=== PATIENT | female | born 1940 | race African-American/Black ===

== ENCOUNTER 2018-08-05 14:56 | Inpatient (IN) | payer MEDICARE ==
--- NOTE | 2018-08-05 15:06 | ER Document Report ---
ED Medical Screen (RME) - General Chief Complaint: Slurred Speech Stated Complaint: WEAKNESS Time Seen by Provider: 08/05/18 15:04 Primary Care Provider: KEL ROSALES MD [Primary Care Provider] - Follow up as needed TRAVEL OUTSIDE OF THE [place] IN LAST 30 DAYS: No - HPI Notes: 08/05/18 15:06 Patient presented to the ED with sudden onset of slurred speech and left facial droop which started at 12 noon today. - Related Data Allergies/Adverse Reactions: ampicillin [Ampicillin] Allergy (Verified 07/25/12 12:07) RED BLOTCHES Penicillins Allergy (Verified 07/25/12 12:07) RED BLOTCHES Past Medical History - Past Medical History Cardiac Medical History: Reports: Hx Hypercholesterolemia, Hx Hypertension - medication Denies: Hx Heart Attack Pulmonary Medical History: Denies: Hx Asthma Neurological Medical History: Reports: Hx Cerebrovascular Accident. Denies: Hx Seizures Endocrine Medical History: Reports: Hx Diabetes Mellitus Type 2 GI Medical History: Denies: Hx Hepatitis, Hx Hiatal Hernia, Hx Ulcer Infectious Medical History: Denies: Hx Hepatitis Past Surgical History: Reports: Hx Bowel Surgery - gastric bypass, Hx Open Heart Surgery - CABG. Denies: Hx Mastectomy, Hx Pacemaker - Immunizations Hx Diphtheria, Pertussis, Tetanus Vaccination: No Doctor's Discharge - Discharge Referrals: KEL ROSALES MD [Primary Care Provider] - Follow up as needed
--- NOTE | 2018-08-05 15:21 | RADIOLOGY REPORT (SQ) ---
EXAM DESCRIPTION: CHEST SINGLE VIEW COMPLETED DATE/TIME: 08/05/2018 3:12 pm REASON FOR STUDY: slurred speech COMPARISON: 08/25/2009. EXAM PARAMETERS: NUMBER OF VIEWS: One view. TECHNIQUE: Single frontal radiographic view of the chest acquired. RADIATION DOSE: NA LIMITATIONS: None. FINDINGS: LUNGS AND PLEURA: Airspace disease in the right lung, more confluent in the right lower lo be. Left lung clear. No large pleural effusion. No pneumothorax. MEDIASTINUM AND HILAR STRUCTURES: No masses. Contour normal. HEART AND VASCULAR STRUCTURES: Heart normal in size. Normal vasculature. BONES: No acute findings. HARDWARE: Sternotomy wires. OTHER: No other significant finding. IMPRESSION: INFILTRATE IN THE RIGHT LUNG SUSPICIOUS FOR PNEUMONIA. CANNOT EXCLUDE UNDERLYING MASS I N THE RIGHT LUNG BASE. TECHNICAL DOCUMENTATION: JOB ID: [id number] [employer]- All Rights Reserved Reading location - IP/workstation name: [email or web address]
--- NOTE | 2018-08-05 15:27 | RADIOLOGY REPORT (SQ) ---
EXAM DESCRIPTION: CT HEAD WITHOUT COMPLETED DATE/TIME: 08/05/2018 3:14 pm REASON FOR STUDY: slurred speech COMPARISON: 07/18/2012. TECHNIQUE: Axial images acquired through the brain without intravenous contrast. Images reviewed wi th bone, brain and subdural windows. Additional sagittal and coronal reconstructions were generated. Images stored on PACS. All CT scanners at this facility use dose modulation, iterative reconstruction, and/or weight based d osing when appropriate to reduce radiation dose to as low as reasonably achievable (ALARA). [facility]: Dose Right [facility]: CareDose [facility]: Dose Right [facility]: Teradose 4D [facility]: [facility] RADIATION DOSE: mGy. LIMITATIONS: None. FINDINGS: VENTRICLES: Prominent. CEREBRUM: No masses. No hemorrhage. No midline shift. Areas of low density in the white matter mos t likely due to chronic micro-vascular ischemic change. No evidence for acute infarction. CEREBELLUM: No masses. No hemorrhage. No alteration of density. No evidence for acute infarction. EXTRAAXIAL SPACES: Age-related involutional change. No fluid collections. No masses. ORBITS AND GLOBE: No intra- or extraconal masses. Normal contour of globe without masses. CALVARIUM: No fracture. PARANASAL SINUSES: No fluid or mucosal thickening. SOFT TISSUES: No mass or hematoma. OTHER: No other significant finding. IMPRESSION: CHRONIC CHANGES OF ATROPHY AND MICROVASCULAR ISCHEMIA. NO ACUTE PROCESS. EVIDENCE OF ACUTE STROKE: NO. COMMENT: Pertinent positive or negative findings of the imaging study reported as a CRITICAL EXAM t o ER PHYSICIAN at15:19 on 08/05/2018. Category of Critical Exam: Stroke protocol. TECHNICAL DOCUMENTATION: JOB ID: [id number] Quality ID # [id number]: Final reports with documentation of one or more dose reduction techniques (e.g., Au tomated exposure control, adjustment of the mA and/or kV according to patient size, use of iterative reconstruction technique) 2010 [employer]- All Rights Reserved Reading location - IP/workstation name: [email or web address]
[2018-08-05 15:32] LABS: ABSOLUTE BASOPHILS # (AUTO) 0.1 10^3/uL (0.0-0.2); ABSOLUTE EOSINOPHILS # (AUTO) 0.4 10^3/uL (0.0-0.6); ABSOLUTE LYMPHOCYTES (AUTO) 1.4 10^3/uL (0.5-4.7); ABSOLUTE MONOCYTES (AUTO) 0.6 10^3/uL (0.1-1.4); ABSOLUTE NEUT (AUTO) 4.4 10^3/uL (1.7-8.2); BASOPHILS % (AUTO) 1.1 % (0-2); EOSINOPHILS % (AUTO) 5.1 % (0-6); HEMATOCRIT 35.7 % (36.0-47.0); HEMOGLOBIN 11.9 g/dL (12.0-15.5); INTERNATIONAL RATION (INR) 1.17; LYMPHOCYTES % (AUTO) 20.5 % (13-45); MEAN CORPUSCULAR HEMOGLOBIN 30.7 pg (27.0-33.4); MEAN CORPUSCULAR HGB CONC 33.3 g/dL (32.0-36.0); MEAN CORPUSCULAR VOLUME 92 fl (80-97); MONOCYTES % (AUTO) 8.9 % (3-13); PROTHROMBIN TIME 15.5 SEC (11.4-15.4); RED BLOOD COUNT 3.87 10^6/uL (3.72-5.28); RED CELL DISTRIBUTION WIDTH 13.6 % (11.5-14.0); SEGMENTED NEUTROPHILS % (AUTO) 64.4 % (42-78); TOTAL CELLS COUNTED % (AUTO) 100 %; WHITE BLOOD COUNT 6.9 10^3/uL (4.0-10.5)
[2018-08-05 15:33] LABS: PARTIAL THROMBOPLASTIN TIME 36.5 SEC (23.5-35.8)
[2018-08-05 15:34] LABS: PLATELET COUNT 92 10^3/uL (150-450)
--- NOTE | 2018-08-05 15:40 | ER Document Report ---
ED NIH Stroke Scale - NIH Stroke Scale When completed:: Before Alteplase *: 1. NIH scale should be completed with appropriate accompanying assessment tools. *: 2. The NIH should reflect what the patient is capable of doing and should not be coached by the clinician. 1a. Level of Consciousness: 0=Alert;keenly responsive -: 1=Drowsy -: 2=Obtunded -: 3=Coma/unresponsive or reflex to noxious stimuli. 1a. Responses: 0 1b. Orientation Questions: a. What month is it? -: b. How old are you? -: 0=Answers both questions correctly. -: 1=Answers one question correctly or patient is intubated or has orotracheal trauma. -: 2=Answers neither question correctly. 1b. Responses: 0 1c. Response to commands: a. Open and close eyes? -: b. Hot Billet Shear Operator and release hand? -: Credit is given despite weakness. Demonstration of task is permitted. Substitute command if hands cannot be used. -: 0=Performs both tasks correctly -: 1=Performs one task correctly -: 2=Performs neither task correctly 1c. Responses: 0 2. Gaze: Establish eye contact and instruct patient to "Follow my finger" -: 0=Normal -: 1=Partial gaze palsy. Gaze is abnormal in one or both eyes, but where forced deviation or total gaze paresis is not present. -: 2=Forced deviation or total gaze paresis. 2. Responses: 0 3. Visual Joyner: Sees fingers in all four quadrants. -: 0=No visual loss. -: 1=Partial hemianopsia. -: 2=Complete hemianopsia. -: 3=Bilateral hemianopsia (including Cortical blindness) 3. Responses: 0 4. Facial Movement: Instruct patient to: -: a. Show me your teeth -: b. Raise your eyebrows -: c. Close your eyes -: d. Smile -: 0=Normal symmetrical movement -: 1=Minor paralysis (flattened nasolabial fold, asymmetry on smiling). -: 2=Partial paralysis (total or near total paralysis of lower face). -: 3=Complete paralysis of upper and lower face 4. Responses: 1 5. Motor functions (left arm): Alternate sides and extend each arm with palms down (90 degrees if sitting or 45 degrees for supine). -: 0=No drift;limb holds for full 10 seconds. -: 1=Drift; limb holds but drifts down before full 10 seconds, but does not hit bed. -: 2=Some effort against gravity; limb cannot get to or maintain position. -: 3=No effort against gravity; limb falls. -: 4=No movement. -: UN=Amputation, joint fusion, explain in comments. 5. Responses (left arm): 0 5. Motor Functions (right arm): Alternate sides and extend each arm with palms down (90 degrees if sitting or 45 degrees for supine). -: 0=No drift;limb holds for full 10 seconds. -: 1=Drift; limb holds but drifts down before full 10 seconds, but does not hit bed. -: 2=Some effort against gravity; limb cannot get to or maintain position. -: 3=No effort against gravity; limb falls. -: 4=No movement. -: UN=Amputation, joint fusion, explain in comments. 5. Responses (right arm): 0 6. Motor Functions (left leg): With patient lying supine, alternate sides and extend each leg (30 degrees always while supine). -: 0=No drift, leg holds position for full 5 seconds -: 1=Drift; leg falls before full 5 seconds but does not hit bed. -: 2=Some effort against gravity, leg falls to bed but some effort against gravity. -: 3=No effort against gravity, leg falls to bed immediately. -: 4=No movement. -: UN=Amputation, joint fusion; explain in comments. 6. Responses (left leg): 0 6. Motor Functions (right leg): With patient lying supine, alternate sides and extend each leg (30 degrees always while supine). -: 0=No drift, leg holds position for full 5 seconds -: 1=Drift; leg falls before full 5 seconds but does not hit bed. -: 2=Some effort against gravity, leg falls to bed but some effort against gravity. -: 3=No effort against gravity, leg falls to bed immediately. -: 4=No movement. -: UN=Amputation, joint fusion; explain in comments. 6. Responses (right leg): 0 7. Limb Ataxia: With eyes open instruct patient to: -: a. "Touch your finger to your nose". -: b. "Touch your heel to your slater" -: 0=Absent -: 1=Present in one limb. -: 2=Present in two limbs. -: UN=Amputation or joint fusion; explain in comments. 7. Responses: 0 8. Sensory: Test sensation using pinprick or noxious stimuli. Test as many body parts as possible. -: 0=Normal;no sensory loss -: 1=Mile to moderate sensory loss (patient feels pin prick but is less sharp on affected side). -: 2=Severe or total sensory loss. 8. Responses: 0 9. Best Language: Instruct patient to: -: a. "Describe what you see in this picture." -: b. "Name the items in this picture." -: c. "Read these sentences." -: 0=No aphasia, normal -: 1=Mild to moderate aphasia. -: 2=Severe aphasia -: 3=Mute, global aphasia, no usable speech or auditory comprehension. 9. Responses: 0 10. Articulation, Dysarthia: Instruct patient to: -: "Read these words" or "Repeat these words" -: 0=Normal -: 1=Mild to moderate; patient may slur some words but can be understood without difficulty. -: 2=Severe; patients speech so slurred as to be unintelligible in the absence of dysphasia. -: UN=Intubated or other physical barrier, explain in comments. 10. Responses: 0 11. Extinction or inattention: 0=No abnormality -: 1= Visual, tactile, auditory, spatial, or personal inattention or extinction to bilateral simulation in one or the sensory modalities. -: 2=Profound abram-inattention or abram-inattention to more than one modality; does not recognize own hand. 11. Responses: 0 Total Score: 1
[2018-08-05] MEDS ORDERED: ASPIRIN 325 MG TABLET PO ONE (15:41)
[2018-08-05 15:50] LABS: BLOOD UREA NITROGEN 24 mg/dL (7-20); CALCIUM 9.8 mg/dL (8.4-10.2); CARBON DIOXIDE 27 mmol/L (22-30); CHLORIDE 104 mmol/L (98-107); GLUCOSE 134 mg/dL (75-110); POTASSIUM 4.1 mmol/L (3.6-5.0)
[2018-08-05 15:51] LABS: ALANINE AMINOTRANSFERASE 25 U/L (9-52); ALBUMIN 4.5 g/dL (3.5-5.0); ALKALINE PHOSPHATASE 85 U/L (38-126); ANION GAP 10 (5-19); ASPARTATE AMINO TRANSFERASE 45 U/L (14-36); BILIRUBIN,DIRECT 0.4 mg/dL (0.0-0.4); BILIRUBIN,TOTAL 0.5 mg/dL (0.2-1.3); CREATINE KINASE 74 U/L (30-135); SODIUM 141.1 mmol/L (137-145); TOTAL PROTEIN 7.8 g/dL (6.3-8.2)
[2018-08-05 16:04] LABS: CREATINE KINASE MB 0.98 ng/mL (<4.55)
[2018-08-05 16:06] LABS: TROPONIN I 0.042 ng/mL
--- NOTE | 2018-08-05 16:31 | ER Document Report ---
ED Neuro Symptoms/Deficit - General Chief Complaint: Slurred Speech Stated Complaint: WEAKNESS Time Seen by Provider: 08/05/18 15:04 Notes: 78-year-old female to the emergency department chief complaint possible stroke. Approximately 3-1/2 hours ago she noticed that she was having difficulty keeping liquids in her mouth while she was eating and drinking. Seem to be a little confused. Had trouble getting some words out but that has since resolved. Decided to come here to get checked out. No prior history of stroke. No blood thinners. Followed by local provider, Dr. Cantu. TRAVEL OUTSIDE OF THE [place] IN LAST 30 DAYS: No - HPI Patient complains to provider of: Facial Droop, Speech Impairment Onset: Just prior to arrival Duration: Better, Continues in ED Quality of pain: No pain Severity: Mild Pain Level: Denies - Related Data Allergies/Adverse Reactions: ampicillin [Ampicillin] Allergy (Verified 07/25/12 12:07) RED BLOTCHES Penicillins Allergy (Verified 07/25/12 12:07) RED BLOTCHES Past Medical History - General Information source: Patient, [facility] Records - Social History Smoking Status: Never Smoker Chew tobacco use (# tins/day): No Frequency of alcohol use: None Drug Abuse: None Lives with: Spouse/Significant other Family History: Reviewed & Not Pertinent Patient has suicidal ideation: No Patient has homicidal ideation: No - Past Medical History Cardiac Medical History: Reports: Hx Hypercholesterolemia, Hx Hypertension - medication Denies: Hx Heart Attack Pulmonary Medical History: Denies: Hx Asthma Neurological Medical History: Reports: Hx Cerebrovascular Accident. Denies: Hx Seizures Endocrine Medical History: Reports: Hx Diabetes Mellitus Type 2 Renal/ Medical History: Denies: Hx Peritoneal Dialysis GI Medical History: Denies: Hx Hepatitis, Hx Hiatal Hernia, Hx Ulcer Infectious Medical History: Denies: Hx Hepatitis Past Surgical History: Reports: Hx Bowel Surgery - gastric bypass, Hx Open Heart Surgery - CABG. Denies: Hx Mastectomy, Hx Pacemaker - Immunizations Hx Diphtheria, Pertussis, Tetanus Vaccination: No Review of Systems - Review of Systems Notes: Constitutional: denies: Chills, Diaphoresis, Fever, Malaise, Weakness EENT: denies: Eye discharge, Blurred vision, Tearing, Double vision, Nose congestion, Nose discharge, Throat swelling, Mouth pain Cardiovascular: denies: Palpitations, Heart racing, Orthopnea, Dyspnea, Chest pain Respiratory: denies: Cough, Hurts to breathe, Wheezing, Shortness of breath Gastrointestinal: denies: Abdominal pain, Diarrhea, Nausea, Vomiting, Black stools, bright red blood in stool Genitourinary: denies: Burning, Dysuria, Discharge, Frequency, Flank pain, Hematuria Musculoskeletal: denies: Joint pain, Joint swelling, Muscle pain, Muscle stiffness, back pain Hematologic/Lymphatic: denies: Anemia, Easy bleeding, Easy bruising, Blood clots Neurological/Psychological: denies: Confusion, Dementia, Depression, Loss of consciousness. Complaining of left-sided facial weakness and difficulty with speech. Skin: No lesions, no masses, no skin breakdown, no abscesses Physical Exam - Vital signs Vitals: Pulse Resp BP Pulse Ox 83 19 164/57 H 99 08/05/18 15:17 08/05/18 15:17 08/05/18 15:17 08/05/18 15:17 Interpretation: Normal - General General appearance: Appears well, Alert - HEENT Head: Normocephalic, Atraumatic Eyes: Normal Pupils: PERRL - Respiratory Respiratory status: No respiratory distress Chest status: Nontender Breath sounds: Normal Chest palpation: Normal - Cardiovascular Rhythm: Regular Heart sounds: Normal auscultation Murmur: No - Abdominal Inspection: Normal Distension: No distension Bowel sounds: Normal Tenderness: Nontender Organomegaly: No organomegaly - Back Back: Normal, Nontender - Extremities General upper extremity: Normal inspection, Nontender, Normal color, Normal ROM, Normal temperature General lower extremity: Normal inspection, Nontender, Normal color, Normal ROM, Normal temperature, Normal weight bearing. No: Tyesha's sign - Neurological Neuro grossly intact: Yes Cognition: Normal Orientation: AAOx4 [place] Coma Scale Eye Opening: Spontaneous [place] Coma Scale Verbal: Oriented [place] Coma Scale Motor: Obeys Commands [place] Coma Scale Total: 15 Speech: Normal Cranial nerves: Facial palsy, Forehead sparing. 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 No: Pronator drift, Weakness, Hemiplegia Babinski reflex: Normal (flexor plantar) Sensory: Normal - Psychological Associated symptoms: Normal affect, Normal mood - Skin Skin Temperature: Warm Skin Moisture: Dry Skin Color: Normal Course - Re-evaluation Re-evalutation: 08/05/18 18:[address] and MRI performed. No obvious stroke at this time. Patient does have facial asymmetry with but with no forehead involvement so the possibility of an evolving stroke is high. At this time I feel uncomfortable discharging her as she does have a slightly elevated troponin as well. She does not appear to be in any kind of arrhythmia. She has a normal sinus rhythm. Aspirin has been given. I have consulted with her primary care doctor, Dr. Cantu who agrees to admit her at this time. She does have an abnormal chest x-ray as well concerning for pneumonia versus a right lung mass. She is currently being treated for pneumonia. Chest X-Ray 08/05/18 15:04 IMPRESSION: INFILTRATE IN THE RIGHT LUNG SUSPICIOUS FOR PNEUMONIA. CANNOT EXCLUDE UNDERLYING MASS IN THE RIGHT LUNG BASE. Head CT 08/05/18 15:04 IMPRESSION: CHRONIC CHANGES OF ATROPHY AND MICROVASCULAR ISCHEMIA. NO ACUTE PROCESS. EVIDENCE OF ACUTE STROKE: NO. Head MRI 08/05/18 15:41 IMPRESSION: Involutional changes of aging with chronic microvascular ischemia. No acute intracranial imaging findings. EVIDENCE OF ACUTE STROKE: NO. 08/05/18 18:12 - Vital Signs Vital signs: Temp Pulse Resp BP Pulse Ox 98.3 F 82 18 157/54 H 98 08/05/18 21:01 08/05/18 21:01 08/05/18 21:01 08/05/18 21:01 08/05/18 21:01 - Laboratory Result Diagrams: 08/05/18 15:15 08/05/18 15:15 Laboratory results interpreted by me: 08/05/18 08/05/18 08/05/18 15:15 15:15 15:15 Hgb 11.9 L Hct 35.7 L Plt Count 92 L PT 15.5 H APTT 36.5 H BUN 24 H Glucose 134 H POC Glucose AST 45 H 08/05/18 15:27 Hgb Hct Plt Count PT APTT BUN Glucose POC Glucose 149 H AST Discharge - Discharge Clinical Impression: Facial paralysis on left side Pneumonia Qualifiers: Pneumonia type: due to unspecified organism Laterality: right Lung location: lower lobe of lung Qualified Code(s): J18.1 - Lobar pneumonia, unspecified organism Condition: Good Disposition: ADMITTED OBSERVATION Admitting Provider: Hospitalist - Dr. Cantu Unit Admitted: Telemetry
--- NOTE | 2018-08-05 17:32 | RADIOLOGY REPORT (SQ) ---
EXAM DESCRIPTION: MRI HEAD WITHOUT COMPLETED DATE/TIME: 08/05/2018 5:18 pm REASON FOR STUDY: stroke symptoms COMPARISON: None. TECHNIQUE: Multiplanar imaging includes non-contrasted T1, T2, FLAIR, and diffusion with ADC map seq uences. Images stored on PACS. LIMITATIONS: None. FINDINGS: ANATOMY: No anomalies. Normal vascular flow voids. Pituitary fossa normal. CSF SPACES: Ventricles and sulci are prominent. CEREBRUM: Gyri normal in size and contour. Areas of increased white matter signal on FLAIR imaging. No evidence of hemorrhage, mass, or extraaxial fluid collection. POSTERIOR FOSSA: No signal alteration. No hemorrhage. No edema, masses or mass effect. Internal suzanna tory canals, cerebello-pontine angles, mastoids normal. DIFFUSION IMAGING: Negative for acute or sub-acute infarction. ORBITS: No masses. Globes normal. PARANASAL SINUSES: No fluid levels. Mucosa normal. OTHER: No other significant finding. IMPRESSION: Involutional changes of aging with chronic microvascular ischemia. No acute intracrania l imaging findings. EVIDENCE OF ACUTE STROKE: NO. TECHNICAL DOCUMENTATION: JOB ID: [id number] [employer]- All Rights Reserved Reading location - IP/workstation name: [email or web address]
[2018-08-05 18:45] LABS: APPEARANCE,URINE SLIGHTLY-CLOUDY; BILIRUBIN,URINE NEGATIVE (NEGATIVE); COLOR,URINE STRAW; GLUCOSE, URINE NEGATIVE (NEGATIVE); KETONES,URINE NEGATIVE (NEGATIVE); LEUKOCYTE ESTERASE,URINE NEGATIVE (NEGATIVE); NITRITE,URINE NEGATIVE (NEGATIVE); PROTEIN,URINE NEGATIVE (NEGATIVE); URINE SPECIFIC GRAVITY 1.011; UROBILINOGEN,URINE NEGATIVE mg/dL (<2.0)
--- NOTE | 2018-08-05 19:26 | EKG REPORT ---
SEVERITY:- OTHERWISE NORMAL ECG - SINUS RHYTHM PAC : Confirmed by: Eliazar Neumann MD 05-Aug-2018 19:25:24
[2018-08-05] MEDS ORDERED: BENZONATATE 100 MG CAPSULE PO PRN (21:18)
[2018-08-05] MEDS ORDERED: GLUCAGON,HUMAN RECOMB 1 MG INJ IM PRN (21:20)
[2018-08-05] MEDS ORDERED: DEXTROSE 50%-WATER 25 GM/50 ML DISP.SYRIN IV PRN ×2 (21:20)
[2018-08-05] MEDS ORDERED: DEXTROSE 40% GEL 15 GM TUBE PO PRN ×2 (21:20)
--- NOTE | 2018-08-05 21:54 | PDOC H&P ---
History of Present Illness Admission Date/PCP: 08/05/18 18:20 KEL ROSALES History of Present Illness: SHEEBA JOAHNSEN is a 78 year old female patient known to my practice who presented to the ED with new onset left facial droop of approximately 31/2 hours duration. Patient reported that she was not able to chew or feel food in her mouth while she was eating. Upon arrival of her she admitted to incomprehensible speech and this prompted her coming to the ED for further evalu ation. She claimed that she was able and remain so with moving all her extremities. she denied any chest pain, palpitation, headache or dizziness. No nausea or vomiting. She denied any alcohol or illicit drug usage. She reported compliance with her medications. She denied any prior similar episode. Upon arrival in the ED there was concern about stroke in evolution but patient refused such treatment. Her subsequent imaging assessment revealed no acute pathologic process on CT and MRI of brain. In view of progressive improvement in her speech there was concern for possible TIA. She was advised admission for further evaluation and management. Her morbidities include Hypertension, Hyperlipidemia, Diabetes Mellitus Type 2, Vitamin B12 and Vitamin D deficiencies, Peripheral vascular disease, CAD, old minor stroke in 2004, Degenerative Osteoarthritis with chronic joint pain, and chronic headache. Past Medical History Cardiac Medical History: Reports: Coronary Artery Disease, Hyperlipidema, Hypertension - medication, Peripheral Vascular Disease Denies: Myocardial Infarction Pulmonary Medical History: Denies: Asthma Neurological Medical History: Reports: Ischemic CVA Denies: Seizures Endocrine Medical History: Reports: Diabetes Mellitus Type 2 GI Medical History: Denies: Hepatitis, Hiatal Hernia Musculoskeltal Medical History: Reports: Arthritis Psychiatric Medical History: Denies: Depression Hematology: Denies: Anemia, Sickle Cell Disease Past Surgical History Past Surgical History: Denies: Amputation, Mastectomy, Pacemaker Social History Lives with: Spouse/Significant other Smoking Status: Never Smoker Frequency of Alcohol Use: None Hx Recreational Drug Use: No Drugs: None Hx Prescription Drug Abuse: No Family History Family History: Reviewed & Not Pertinent Parental Family History Reviewed: Yes Children Family History Reviewed: Yes Sibling(s) Family History Reviewed.: Yes Medication/Allergy Home Medications: Amlodipine Besylate [Norvasc 5 mg Tablet] 5 mg PO DAILY 08/05/18 Ascorbate Calcium [Vitamin C] 500 mg PO DAILY 08/05/18 Benzonatate [Tessalon Perles 100 mg Capsule] 200 mg PO Q8HP PRN 08/05/18 Ferrous Sulfate [Feosol 325 mg Tablet] 325 mg PO DAILY 08/05/18 Irbesartan [Avapro] 300 mg PO DAILY 08/05/18 Metformin HCl 500 mg PO BID 08/05/18 Pravastatin Sodium [Pravachol] 40 mg PO DAILY 08/05/18 Allergies/Adverse Reactions: ampicillin [Ampicillin] Allergy (Verified 07/25/12 12:07) RED BLOTCHES Penicillins Allergy (Verified 07/25/12 12:07) RED BLOTCHES Review of Systems Constitutional: ABSENT: chills, fever(s), headache(s), weight gain, weight loss Eyes: ABSENT: visual disturbances Ears: ABSENT: hearing changes Nose, Mouth, and Throat: PRESENT: headache(s) - chronic but not ongoing presently Cardiovascular: ABSENT: chest pain, dyspnea on exertion, edema, orthropnea, palpitations Respiratory: ABSENT: cough, hemoptysis Gastrointestinal: ABSENT: abdominal pain, constipation, diarrhea, hematemesis, hematochezia, nausea, vomiting Genitourinary: ABSENT: dysuria, hematuria Musculoskeletal: PRESENT: deformity - related to her arthritis Integumentary: ABSENT: rash, wounds Neurological: PRESENT: abnormal speech, weakness - facial with drooping. ABSENT: as per HPI, abnormal gait, abnormal movements, confusion, convulsions, dizziness, focal weakness, frequent falls, lack of coordination, memory loss, numbness, paresthesias, restless legs, syncope, tingling, tremor(s), vertigo, other Psychiatric: ABSENT: anxiety, depression, homidical ideation, suicidal ideation Endocrine: ABSENT: cold intolerance, heat intolerance, polydipsia, polyuria Hematologic/Lymphatic: ABSENT: easy bleeding, easy bruising, lymphadenopathy Allergic/Immunologic: ABSENT: seasonal rhinorrhea Physical Exam Vital Signs: Temp Pulse Resp BP Pulse Ox 98.3 F 82 18 157/54 H 98 08/05/18 21:01 08/05/18 21:01 08/05/18 21:01 08/05/18 21:01 08/05/18 21:01 Intake & Output 08/04/18 08/05/18 08/06/18 06:59 06:59 06:59 Weight 77.7 kg General appearance: PRESENT: no acute distress, well-developed, well-nourished Head exam: PRESENT: atraumatic, normocephalic Eye exam: PRESENT: conjunctiva pink, EOMI, PERRLA. ABSENT: scleral icterus Ear exam: PRESENT: normal external ear exam Mouth exam: PRESENT: moist Neck exam: PRESENT: full ROM. ABSENT: carotid bruit, JVD, lymphadenopathy, thyromegaly Respiratory exam: PRESENT: clear to auscultation tevin Cardiovascular exam: PRESENT: RRR. ABSENT: diastolic murmur, rubs, systolic murmur Pulses: PRESENT: normal dorsalis pedis pul, +2 pedal pulses bilateral Vascular exam: PRESENT: normal capillary refill. ABSENT: pallor GI/Abdominal exam: PRESENT: normal bowel sounds, soft. ABSENT: distended, guarding, mass, organolmegaly, rebound, tenderness Rectal exam: PRESENT: deferred Extremities exam: PRESENT: pedal edema - bilateral, chronic and minimal intensity Neurological exam: PRESENT: alert, awake, oriented to person, oriented to place, oriented to time, oriented to situation, CN II-XII grossly intact, other - left sided facial droop with comparative loss of left nasolabia fold. ABSENT: motor sensory deficit Psychiatric exam: PRESENT: appropriate affect, normal mood. ABSENT: homicidal ideation, suicidal ideation Skin exam: PRESENT: dry, warm Results Laboratory Results: 08/05/18 15:15 08/05/18 15:15 08/05/18 08/05/18 08/05/18 15:15 15:15 18:25 WBC 6.9 RBC 3.87 Hgb 11.9 L Hct 35.7 L MCV 92 MCH 30.7 MCHC 33.3 RDW 13.6 Plt Count 92 L Seg Neutrophils % 64.4 Lymphocytes % 20.5 Monocytes % 8.9 Eosinophils % 5.1 Basophils % 1.1 Absolute Neutrophils 4.4 Absolute Lymphocytes 1.4 Absolute Monocytes 0.6 Absolute Eosinophils 0.4 Absolute Basophils 0.1 Sodium 141.1 Potassium 4.1 Chloride 104 Carbon Dioxide 27 Anion Gap 10 BUN 24 H Creatinine 0.84 Est GFR ( Amer) > 60 Est GFR (Non-Af Amer) > 60 Glucose 134 H Calcium 9.8 Total Bilirubin 0.5 AST 45 H ALT 25 Alkaline Phosphatase 85 Total Protein 7.8 Albumin 4.5 Urine Color STRAW Urine Appearance SLIGHTLY-CLOUDY Urine pH 5.0 Ur Specific [place] 1.011 Urine Protein NEGATIVE Urine Glucose (UA) NEGATIVE Urine Ketones NEGATIVE Urine Blood MODERATE H Urine Nitrite NEGATIVE Ur Leukocyte Esterase NEGATIVE Urine RBC (Auto) 7 08/05/18 08/05/18 15:15 15:15 Creatine Kinase 74 CK-MB (CK-2) 0.98 Troponin I 0.042 Impressions: Chest X-Ray 08/05/18 15:04 IMPRESSION: INFILTRATE IN THE RIGHT LUNG SUSPICIOUS FOR PNEUMONIA. CANNOT EXCLUDE UNDERLYING MASS IN THE RIGHT LUNG BASE. Head CT 08/05/18 15:04 IMPRESSION: CHRONIC CHANGES OF ATROPHY AND MICROVASCULAR ISCHEMIA. NO ACUTE PROCESS. EVIDENCE OF ACUTE STROKE: NO. Head MRI 08/05/18 15:41 IMPRESSION: Involutional changes of aging with chronic microvascular ischemia. No acute intracranial imaging findings. EVIDENCE OF ACUTE STROKE: NO. Assessment & Plan - Diagnosis (1) Facial paralysis on left side Is this a current diagnosis for this admission?: Yes Plan: See admitting attending physician orders. (2) Pneumonia Qualifiers: Pneumonia type: due to unspecified organism Laterality: right Lung location: lower lobe of lung Qualified Code(s): J18.1 - Lobar pneumonia, unspecified organism Is this a current diagnosis for this admission?: Yes Plan: See admitting attending physician orders. (3) HTN (hypertension) Qualifiers: Hypertension type: essential hypertension Qualified Code(s): I10 - Essential (primary) hypertension Is this a current diagnosis for this admission?: Yes Plan: See admitting attending physician orders. (4) CAD (coronary artery disease) Qualifiers: Coronary Disease-Associated Artery/Lesion type: [place] artery [place] vs. transplanted heart: [place] heart Associated angina: angina presence unspecified Qualified Code(s): I25.10 - Atherosclerotic heart disease of [place] coronary artery without angina pectoris Is this a current diagnosis for this admission?: Yes Plan: See admitting attending physician orders. (5) PVD (peripheral vascular disease) Is this a current diagnosis for this admission?: Yes Plan: See admitting attending physician orders. (6) Old lacunar stroke without late effect Is this a current diagnosis for this admission?: Yes Plan: See admitting attending physician orders. (7) Diabetes mellitus type 2 in nonobese Is this a current diagnosis for this admission?: Yes Plan: See admitting attending physician orders. (8) HLD (hyperlipidemia) Qualifiers: Hyperlipidemia type: pure hypercholesterolemia Qualified Code(s): E78.00 - Pure hypercholesterolemia, unspecified; E78.0 - Pure hypercholesterolemia Is this a current diagnosis for this admission?: Yes Plan: See admitting attending physician orders. (9) Vitamin D deficiency Is this a current diagnosis for this admission?: Yes Plan: See admitting attending physician orders. (10) Vitamin B 12 deficiency Is this a current diagnosis for this admission?: Yes Plan: See admitting attending physician orders. (12) Chronic headache disorder Qualifiers: Headache type: unspecified Intractability: not intractable Qualified Code(s): R51 - Headache Is this a current diagnosis for this admission?: Yes Plan: See admitting attending physician orders. - Time Time Spent: 50 to 70 Minutes Medications reviewed and adjusted accordingly: Yes Anticipated discharge: Home with Homehealth Within: Other - Inpatient Certification Based on my medical assessment, after consideration of the patient's comorbidities, presenting symptoms, or acuity I expect that the services needed warrant INPATIENT care.: Yes I certify that my determination is in accordance with my understanding of Medicare's requirements for reasonable and necessary INPATIENT services [42 CFR 412.3e].: Yes Medical Necessity: Significant Comorbidiites Make Outpatient Treatment Too Risky, Need Close Monitoring Due to Risk of Patient Decompensation, Need For IV Fluids, Need For Continuous Telemetry Monitoring, Need for IV Antibiotics, Risk of Complication if Not Cared For in Hospital, Risk of Diagnosis Which Will Require Inpatient Eval/Care/Monitoring Post Hospital Care: D/C Tax Manager Documentation - Plan Summary Plan Summary: See admitting attending physician orders.
[2018-08-05] MEDS ORDERED: AMLODIPINE BESYLATE 5 MG TABLET PO ONE (22:00)
[2018-08-05] MEDS ORDERED: LOSARTAN POTASSIUM 50 MG TABLET PO ONE ×2 (22:00→23:00)
[2018-08-05] MEDS: ATORVASTATIN CALCIUM 10 MG TABLET PO SCH (22:26)
[2018-08-05] MEDS: LEVOFLOXACIN 500 MG/D5W RTU 500 MG/100 ML RTUPB IV SCH (22:28)
[2018-08-05] MEDS: INSULIN LISPRO 100 UNIT/ML 3 ML VIAL SUBCUT SCH (22:29)
[2018-08-06 05:25] LABS: INTERNATIONAL RATION (INR) 1.25; PARTIAL THROMBOPLASTIN TIME 33.5 SEC (23.5-35.8); PROTHROMBIN TIME 16.3 SEC (11.4-15.4)
[2018-08-06 05:26] LABS: ABSOLUTE BASOPHILS # (AUTO) 0.1 10^3/uL (0.0-0.2); ABSOLUTE EOSINOPHILS # (AUTO) 0.4 10^3/uL (0.0-0.6); ABSOLUTE LYMPHOCYTES (AUTO) 1.1 10^3/uL (0.5-4.7); ABSOLUTE MONOCYTES (AUTO) 0.6 10^3/uL (0.1-1.4); ABSOLUTE NEUT (AUTO) 3.7 10^3/uL (1.7-8.2); EOSINOPHILS % (AUTO) 6.8 % (0-6); HEMATOCRIT 32.3 % (36.0-47.0); HEMOGLOBIN 10.8 g/dL (12.0-15.5); LYMPHOCYTES % (AUTO) 18.7 % (13-45); MEAN CORPUSCULAR HEMOGLOBIN 30.5 pg (27.0-33.4); MEAN CORPUSCULAR HGB CONC 33.5 g/dL (32.0-36.0); MEAN CORPUSCULAR VOLUME 91 fl (80-97); MONOCYTES % (AUTO) 10.1 % (3-13); RED BLOOD COUNT 3.54 10^6/uL (3.72-5.28); SEGMENTED NEUTROPHILS % (AUTO) 63.4 % (42-78); TOTAL CELLS COUNTED % (AUTO) 100 %; WHITE BLOOD COUNT 5.9 10^3/uL (4.0-10.5)
[2018-08-06 05:36] LABS: ALANINE AMINOTRANSFERASE 27 U/L (9-52); ALBUMIN 3.6 g/dL (3.5-5.0); ALKALINE PHOSPHATASE 82 U/L (38-126); ANION GAP 6 (5-19); ASPARTATE AMINO TRANSFERASE 26 U/L (14-36); BILIRUBIN,DIRECT 0.2 mg/dL (0.0-0.4); BILIRUBIN,TOTAL 0.5 mg/dL (0.2-1.3); BLOOD UREA NITROGEN 20 mg/dL (7-20); CALCIUM 9.2 mg/dL (8.4-10.2); CARBON DIOXIDE 26 mmol/L (22-30); CHLORIDE 108 mmol/L (98-107); CHOLESTEROL 175.71 mg/dL (0-200); GLUCOSE 123 mg/dL (75-110); POTASSIUM 3.9 mmol/L (3.6-5.0); SODIUM 140.4 mmol/L (137-145); TOTAL PROTEIN 6.6 g/dL (6.3-8.2); TRIGLYCERIDES 82 mg/dL (<150)
[2018-08-06] MEDS: PANTOPRAZOLE SODIUM 40 MG TABLET.DR PO SCH (05:38)
[2018-08-06 05:47] LABS: DIRECT LDL 85 mg/dL (<100)
[2018-08-06] MEDS ORDERED: LANSOPRAZOLE 30 MG TAB.RAP.DR PO SCH (06:00)
[2018-08-06 06:02] LABS: PLATELET COUNT 81 10^3/uL (150-450)
[2018-08-06 06:03] LABS: POLYCHROMASIA SLIGHT
[2018-08-06 06:04] LABS: HYPOCHROMASIA SLIGHT; PLATELET COMMENT ADEQUATE
[2018-08-06] MEDS ORDERED: (PENDING PHARMACY ID) (Ascorbate Calcium [Vitamin C] 500 MG) PO SCH (10:00)
[2018-08-06] MEDS ORDERED: LOSARTAN POTASSIUM 50 MG TABLET PO SCH (10:00)
[2018-08-06] MEDS ORDERED: (PENDING PHARMACY ID) (Irbesartan [Avapro] 300 MG) PO SCH (10:00)
[2018-08-06] MEDS ORDERED: (PENDING PHARMACY ID) (Pravastatin Sodium [Pravachol] 40 MG) PO SCH (10:00)
--- NOTE | 2018-08-06 10:01 | RADIOLOGY REPORT (SQ) ---
EXAM DESCRIPTION: CT CHEST WITH COMPLETED DATE/TIME: 08/06/2018 9:01 am REASON FOR STUDY: Abnormal chest X ray, TIA COMPARISON: Chest x-ray dated 08/05/2018. TECHNIQUE: CT scan of the chest performed using helical scanning technique with dynamic intravenous contrast injection. Images reviewed with lung, soft tissue and bone windows. Reconstructed coronal and sagittal MPR and MIP images reviewed. All images stored on PACS. All CT scanners at this facility use dose modulation, iterative reconstruction, and/or weight based d osing when appropriate to reduce radiation dose to as low as reasonably achievable (ALARA). [facility]: Dose Right [facility]: CareDose [facility]: Dose Right [facility]: Teradose 4D [facility]: LiveDeal CONTRAST TYPE AND DOSE: contrast/concentration: Isovue 350.00 mg/ml; Total Contrast Delivered: 80.0 ml; Total Saline Delivered: 55.0 ml RENAL FUNCTION: BUN 20 creatinine 0.77. RADIATION DOSE: CT Rad equipment meets quality standard of care and radiation dose reduction techniq ues were employed. CTDIvol: 7.6 mGy. DLP: 266 mGy-cm. . LIMITATIONS: None. FINDINGS: LUNGS AND PLEURA: Spiculated right hilar mass surrounding the right pulmonary artery and b ronchi to the right lung. Transverse measurement 4 cm and AP measurement 5 cm. Spiculated mass in t he right lower lobe with transverse measurements approximately 4.5 cm. Subpleural mass in the latera l left lower lobe measuring 7 x 14 mm. Patchy airspace disease in the perihilar right lung and right lower lobe. Small right pleural effusion. HILAR AND MEDIASTINAL STRUCTURES: Confluent soft tissue mass in the right hilum as described extendin g into the subcarinal space and superiorly along the right trachea. HEART AND VASCULAR STRUCTURES: No aneurysm or dissection. No central pulmonary emboli. No pericardi al effusion. HARDWARE: Sternotomy wires. UPPER ABDOMEN: No significant findings. Limited exam. THYROID AND OTHER SOFT TISSUES: No masses. No adenopathy. BONES: No significant finding. OTHER: No other significant finding. IMPRESSION: 1. SPICULATED MASS IN THE RIGHT LOWER LOBE AND SPICULATED CONFLUENT MASS IN THE RIGHT HILUM CONSISTEN T WITH MALIGNANCY AND METASTATIC ADENOPATHY. SMALLER MASS IN THE SUBPLEURAL LEFT LOWER LOBE MAY REPR ESENT A METASTASIS OR A 2ND MALIGNANCY. SMALL RIGHT PLEURAL EFFUSION. 2. PATCHY AIRSPACE DISEASE IN THE PERIHILAR RIGHT LUNG AND RIGHT LOWER LOBE. MAY REPRESENT INTERSTIT IAL SPREAD OF TUMOR OR PNEUMONITIS. INFECTION PROBABLY LESS LIKELY BUT NOT EXCLUDED. TECHNICAL DOCUMENTATION: JOB ID: [id number] Quality ID # [id number]: Final reports with documentation of one or more dose reduction techniques (e.g., Au tomated exposure control, adjustment of the mA and/or kV according to patient size, use of iterative reconstruction technique) 2010 [employer]- All Rights Reserved Reading location - IP/workstation name: [email or web address]
[2018-08-06] MEDS: INSULIN LISPRO 100 UNIT/ML 3 ML VIAL SUBCUT SCH ×4 (10:11→22:04)
[2018-08-06] MEDS: FERROUS SULFATE 325 MG TABLET PO SCH (10:13)
[2018-08-06] MEDS: AMLODIPINE BESYLATE 5 MG TABLET PO SCH (10:13)
[2018-08-06] MEDS: ASPIRIN 81 MG TABLET, ENT COATED PO SCH (10:14)
[2018-08-06] MEDS: ASCORBIC ACID 500 MG TABLET PO SCH (10:14)
[2018-08-06] MEDS: METFORMIN HCL 500 MG TABLET PO SCH ×2 (10:14→17:24)
--- NOTE | 2018-08-06 11:06 | RADIOLOGY REPORT (SQ) ---
EXAM DESCRIPTION: CAROTID DOPPLER COMPLETED DATE/TIME: 08/06/2018 10:25 am REASON FOR STUDY: TIA COMPARISON: None. TECHNIQUE: Grayscale ultrasound, Doppler velocity and spectra, and color Doppler images acquired of the extra-cranial carotid and vertebral arteries. Images stored on PACS. LIMITATIONS: None. FINDINGS: RIGHT CAROTID CCA Velocities: Within normal limits. ICA Velocities Peak systolic 0.91 m/s. End diastolic 0.27 m/s. Proximal ICA/CCA peak systolic ratio 1.5. Shadowing plaque in the carotid bulb. LEFT CAROTID CCA Velocities: Within normal limits. ICA Velocities Peak systolic 0.96 m/s. End diastolic 0.33 m/s. Proximal ICA/CCA peak systolic ratio 1.4. Shadowing plaque in the proximal internal carotid artery. VERTEBRAL ARTERIES: Antegrade flow. Normal waveforms. SUBCLAVIAN ARTERIES: No finding. OTHER: No other significant finding. IMPRESSION: BILATERAL PLAQUE. NO HEMODYNAMICALLY SIGNIFICANT STENOSIS. COMMENT: Quality ID #[id number]: Velocity criteria are extrapolated from the diameter data as defined by t he Society of Radiologists in Ultrasound Consensus Conference. Radiology 2003: 229; 340-346. TECHNICAL DOCUMENTATION: JOB ID: [id number] [employer]- All Rights Reserved Reading location - IP/workstation name: [email or web address]
[2018-08-06] MEDS: NORMAL SALINE 1000 ML 1,000 ML IV PRN (13:13)
--- NOTE | 2018-08-06 19:31 | PDOC PROGRESS REPORT ---
Subjective Progress Note for:: 08/06/18 Subjective:: Patient reported persistent intermittent coughing with difficult expectorating. No chest pain, There is intermittent chills but no fever. No nausea or vomiting. Reason For Visit: TIA,PVD,HTN,CAD,HYPERLIPIDEMIA,DIABETES MELLITUS Physical Exam Vital Signs: Temp Pulse Resp BP Pulse Ox 98.7 F 94 14 144/50 H 100 08/06/18 15:39 08/06/18 18:40 08/06/18 16:00 08/06/18 16:00 08/06/18 16:00 Intake & Output 08/05/18 08/06/18 08/07/18 06:59 06:59 06:59 Intake Total 150 800 Balance 150 800 Weight 77.7 kg General appearance: PRESENT: no acute distress Head exam: PRESENT: atraumatic, normocephalic Eye exam: PRESENT: conjunctiva pink, EOMI, PERRLA. ABSENT: scleral icterus Ear exam: PRESENT: normal external ear exam Mouth exam: PRESENT: moist Respiratory exam: PRESENT: clear to auscultation tevin, decreased breath sounds Cardiovascular exam: PRESENT: RRR. ABSENT: diastolic murmur, rubs, systolic murmur Vascular exam: PRESENT: normal capillary refill. ABSENT: pallor GI/Abdominal exam: PRESENT: normal bowel sounds, soft. ABSENT: distended, guarding, mass, organolmegaly, rebound, tenderness Extremities exam: ABSENT: pedal edema Neurological exam: PRESENT: alert, awake, oriented to person, oriented to place, oriented to time, oriented to situation, CN II-XII grossly intact, other - there is improvement in her left facial droop.. ABSENT: motor sensory deficit Psychiatric exam: PRESENT: appropriate affect, normal mood. ABSENT: homicidal ideation, suicidal ideation Skin exam: PRESENT: dry, warm Results Laboratory Results: 08/06/18 05:03 08/06/18 05:03 08/06/18 08/06/18 05:03 05:03 WBC 5.9 RBC 3.54 L Hgb 10.8 L Hct 32.3 L MCV 91 MCH 30.5 MCHC 33.5 RDW 13.0 Plt Count 81 L Seg Neutrophils % 63.4 Lymphocytes % 18.7 Monocytes % 10.1 Eosinophils % 6.8 H Basophils % 1.0 Absolute Neutrophils 3.7 Absolute Lymphocytes 1.1 Absolute Monocytes 0.6 Absolute Eosinophils 0.4 Absolute Basophils 0.1 Sodium 140.4 Potassium 3.9 Chloride 108 H Carbon Dioxide 26 Anion Gap 6 BUN 20 Creatinine 0.77 Est GFR ( Amer) > 60 Est GFR (Non-Af Amer) > 60 Glucose 123 H Calcium 9.2 Total Bilirubin 0.5 AST 26 ALT 27 Alkaline Phosphatase 82 Total Protein 6.6 Albumin 3.6 Triglycerides 82 Cholesterol 175.71 LDL Cholesterol Direct 85 VLDL Cholesterol 16.0 HDL Cholesterol 66 08/05/18 08/05/18 15:15 15:15 Creatine Kinase 74 CK-MB (CK-2) 0.98 Troponin I 0.042 Impressions: Chest CT 08/05/18 00:00 IMPRESSION: 1. SPICULATED MASS IN THE RIGHT LOWER LOBE AND SPICULATED CONFLUENT MASS IN THE RIGHT HILUM CONSISTENT WITH MALIGNANCY AND METASTATIC ADENOPATHY. SMALLER MASS IN THE SUBPLEURAL LEFT LOWER LOBE MAY REPRESENT A METASTASIS OR A 2ND MALIGNANCY. SMALL RIGHT PLEURAL EFFUSION. 2. PATCHY AIRSPACE DISEASE IN THE PERIHILAR RIGHT LUNG AND RIGHT LOWER LOBE. MAY REPRESENT INTERSTITIAL SPREAD OF TUMOR OR PNEUMONITIS. INFECTION PROBABLY LESS LIKELY BUT NOT EXCLUDED. Chest X-Ray 08/05/18 15:04 IMPRESSION: INFILTRATE IN THE RIGHT LUNG SUSPICIOUS FOR PNEUMONIA. CANNOT EXCLUDE UNDERLYING MASS IN THE RIGHT LUNG BASE. Head CT 08/05/18 15:04 IMPRESSION: CHRONIC CHANGES OF ATROPHY AND MICROVASCULAR ISCHEMIA. NO ACUTE PROCESS. EVIDENCE OF ACUTE STROKE: NO. Head MRI 08/05/18 15:41 IMPRESSION: Involutional changes of aging with chronic microvascular ischemia. No acute intracranial imaging findings. EVIDENCE OF ACUTE STROKE: NO. Carotid Doppler Study 08/06/18 08:00 IMPRESSION: BILATERAL PLAQUE. NO HEMODYNAMICALLY SIGNIFICANT STENOSIS. Assessment & Plan - Diagnosis (1) Facial paralysis on left side Is this a current diagnosis for this admission?: Yes (2) Pneumonia Qualifiers: Pneumonia type: due to unspecified organism Laterality: right Lung location: lower lobe of lung Qualified Code(s): J18.1 - Lobar pneumonia, unspecified organism Is this a current diagnosis for this admission?: Yes (3) HTN (hypertension) Qualifiers: Hypertension type: essential hypertension Qualified Code(s): I10 - Essential (primary) hypertension Is this a current diagnosis for this admission?: Yes (4) CAD (coronary artery disease) Qualifiers: Coronary Disease-Associated Artery/Lesion type: [place] artery [place] vs. transplanted heart: [place] heart Associated angina: angina presence unspecified Qualified Code(s): I25.10 - Atherosclerotic heart disease of [place] coronary artery without angina pectoris Is this a current diagnosis for this admission?: Yes (5) PVD (peripheral vascular disease) Is this a current diagnosis for this admission?: Yes (6) Old lacunar stroke without late effect Is this a current diagnosis for this admission?: Yes (7) Diabetes mellitus type 2 in nonobese Is this a current diagnosis for this admission?: Yes (8) HLD (hyperlipidemia) Qualifiers: Hyperlipidemia type: pure hypercholesterolemia Qualified Code(s): E78.00 - Pure hypercholesterolemia, unspecified; E78.0 - Pure hypercholesterolemia Is this a current diagnosis for this admission?: Yes (9) Vitamin D deficiency Is this a current diagnosis for this admission?: Yes (10) Vitamin B 12 deficiency Is this a current diagnosis for this admission?: Yes (12) Chronic headache disorder Qualifiers: Headache type: unspecified Intractability: not intractable Qualified Code(s): R51 - Headache Is this a current diagnosis for this admission?: Yes (13) Mass of right lung Is this a current diagnosis for this admission?: Yes Plan: Discuss case with interventional radiologist for possible CT guided biopsy versus bronchoscopy approach. I has extensive discussion with patient and spouse at bed side regarding CT chest findings and they are in agreement with care plan at this time. - Time Time Spent with patient: 25-34 minutes Medications reviewed and adjusted accordingly: Yes Anticipated discharge: Home Within: Other - Inpatient Certification Based on my medical assessment, after consideration of the patient's comorbidities, presenting symptoms, or acuity I expect that the services needed warrant INPATIENT care.: Yes I certify that my determination is in accordance with my understanding of Medicare's requirements for reasonable and necessary INPATIENT services [42 CFR 412.3e].: Yes Medical Necessity: Significant Comorbidiites Make Outpatient Treatment Too Risky, Need Close Monitoring Due to Risk of Patient Decompensation, Need For IV Fluids, Need For Continuous Telemetry Monitoring, Need for Nebulizer Therapy and Monitoring of Response, Need for IV Antibiotics, Risk of Complication if Not Cared For in Hospital, Risk of Diagnosis Which Will Require Inpatient Eval/Care/Monitoring Post Hospital Care: D/C [employer] Supervisor Documentation - Plan Summary Plan Summary: Continue on current mediation management. D/.C MENDS. Add SCD to DVT prophylaxis at this time pending decision on biopsy. her coagulation study suggested impairment at this time.
[2018-08-06] MEDS: BENZONATATE 100 MG CAPSULE PO SCH (21:19)
[2018-08-06] MEDS: ATORVASTATIN CALCIUM 10 MG TABLET PO SCH (21:19)
[2018-08-06] MEDS: LEVOFLOXACIN 500 MG/D5W RTU 500 MG/100 ML RTUPB IV SCH (21:19)
[2018-08-07] MEDS: NORMAL SALINE 1000 ML 1,000 ML IV PRN (03:57)
[2018-08-07] MEDS: BENZONATATE 100 MG CAPSULE PO SCH ×3 (05:08→22:25)
[2018-08-07] MEDS: PANTOPRAZOLE SODIUM 40 MG TABLET.DR PO SCH (05:08)
[2018-08-07 05:22] LABS: ABSOLUTE EOSINOPHILS # (AUTO) 0.4 10^3/uL (0.0-0.6); ABSOLUTE LYMPHOCYTES (AUTO) 1.1 10^3/uL (0.5-4.7); ABSOLUTE MONOCYTES (AUTO) 0.6 10^3/uL (0.1-1.4); ABSOLUTE NEUT (AUTO) 3.6 10^3/uL (1.7-8.2); BASOPHILS % (AUTO) 0.8 % (0-2); EOSINOPHILS % (AUTO) 6.5 % (0-6); HEMATOCRIT 31.4 % (36.0-47.0); HEMOGLOBIN 10.6 g/dL (12.0-15.5); LYMPHOCYTES % (AUTO) 19.5 % (13-45); MEAN CORPUSCULAR HEMOGLOBIN 30.8 pg (27.0-33.4); MEAN CORPUSCULAR HGB CONC 33.7 g/dL (32.0-36.0); MEAN CORPUSCULAR VOLUME 91 fl (80-97); RED BLOOD COUNT 3.43 10^6/uL (3.72-5.28); RED CELL DISTRIBUTION WIDTH 13.1 % (11.5-14.0); SEGMENTED NEUTROPHILS % (AUTO) 62.2 % (42-78); TOTAL CELLS COUNTED % (AUTO) 100 %; WHITE BLOOD COUNT 5.8 10^3/uL (4.0-10.5)
[2018-08-07 05:27] LABS: PROTHROMBIN TIME 15.8 SEC (11.4-15.4)
[2018-08-07 05:28] LABS: PARTIAL THROMBOPLASTIN TIME 32.8 SEC (23.5-35.8)
[2018-08-07 05:50] LABS: ANION GAP 8 (5-19); BLOOD UREA NITROGEN 16 mg/dL (7-20); CARBON DIOXIDE 25 mmol/L (22-30); CHLORIDE 107 mmol/L (98-107); GLUCOSE 121 mg/dL (75-110); PLATELET COUNT 78 10^3/uL (150-450); POTASSIUM 3.7 mmol/L (3.6-5.0); SODIUM 140.2 mmol/L (137-145)
[2018-08-07] MEDS: INSULIN LISPRO 100 UNIT/ML 3 ML VIAL SUBCUT SCH ×4 (08:18→22:27)
[2018-08-07] MEDS: METFORMIN HCL 500 MG TABLET PO SCH ×2 (08:24→17:50)
[2018-08-07] MEDS: ASCORBIC ACID 500 MG TABLET PO SCH (09:51)
[2018-08-07] MEDS: ASPIRIN 81 MG TABLET, ENT COATED PO SCH (09:51)
[2018-08-07] MEDS: FERROUS SULFATE 325 MG TABLET PO SCH (09:51)
[2018-08-07] MEDS: AMLODIPINE BESYLATE 5 MG TABLET PO SCH (09:51)
--- NOTE | 2018-08-07 12:42 | XCELERA REPORT ---
[address] [address] Transthoracic Echocardiogram Report Name: SHEEBA JOHANSEN Age: 78 yrs Gender: Female : 1940 Patient Status: Inpatient Patient Location: [address] [place], [place] [id number] Study Date: 08/06/2018 09:04 AM Height: 65 in Weight: 171 lb BSA: 1.9 m2 Procedure: A two-dimensional transthoracic echocardiogram with color flow and Doppler was performed. Study Quality: Fair. Reason For Study: TIA History: TIA. Ordering Physician: KEL ROSALES Performed By: Darya Wheatley Interpretation Summary There is no obvious cardiac source of embolus noted on this transthoracic echocardiogram. Follow-up with a PHANI is suggested if cardiac source is still suspected. Study Quality: Fair. The left ventricle is normal in size. There is mild concentric left ventricular hypertrophy. LV EF is 65% The left ventricular ejection fraction is within normal limits. Doppler measurements suggest impaired left ventricular relaxation, which is associated with grade I/IV or mild diastolic dysfunction The left ventricular wall motion is normal. There is no thrombus. The right ventricle is grossly normal size. The right atrium is normal. The left atrial size is normal. The interatrial septum is intact with no evidence for an atrial septal defect. There is no evidence of mitral valve prolapse. There is no vegetation seen on the mitral valve. There is no mitral valve stenosis. There is a trace amount of mitral regurgitation There is no aortic valvular vegetation. There is mild to moderate aortic stenosis There is a peak gradient of 36 mm of Hg. There is no LVOT obstruction. There is a trace amount of aortic regurgitation There is no tricuspid stenosis. There is a trace amount of tricuspid regurgitation Unable to calculate RVSP due lack of TR jet. There is no pulmonic valvular stenosis. There is a trace amount of pulmonic regurgitation The aortic root is normal size. There is no pericardial effusion. There is no obvious cardiac source of embolus noted on this transthoracic echocardiogram. Follow-up with a PHANI is suggested if cardiac source is still suspected MMode/2D Measurements & Calculations RVDd: 3.2 cm LVIDd: 4.8 cm FS: 36.8 % Ao root diam: 2.9 cm IVSd: 1.3 cm LVIDs: 3.0 cm EDV(Teich): 107.8 ml Ao root area: 6.5 cm2 LVPWd: 1.3 cm ESV(Teich): 36.1 ml LA dimension: 4.0 cm EF(Teich): 66.6 % LVOT diam: 2.3 cm LVOT area: 4.3 cm2 Doppler Measurements & Calculations MV E max toño: MV P1/2t max toño: Ao V2 max: LV V1 max P.5 cm/sec 82.1 cm/sec 299.6 cm/sec 4.2 mmHg MV A max toño: MV P1/2t: 68.4 msec Ao max PG: LV V1 mean P.8 cm/sec MVA(P1/2t): 3.2 cm2 36.0 mmHg 2.2 mmHg MV E/A: 0.74 MV dec slope: Ao V2 mean: LV V1 max: 194.3 cm/sec 102.7 cm/sec 351.8 cm/sec2 Ao mean PG: LV V1 mean: MV dec time: 0.22 sec18.0 mmHg 67.0 cm/sec Ao V2 VTI: 58.9 cm LV V1 VTI: 22.0 cm TERE(I,D): 1.6 cm2 TERE(V,D): 1.5 cm2 SV(LVOT): 94.0 ml PA V2 max: PI end-d toño: MV P1/2t-pr_phl: 106.6 cm/sec 122.2 cm/sec 68.4 msec PA max P.5 mmHg Left Ventricle The left ventricle is normal in size. There is mild concentric left ventricular hypertrophy. LV EF is 65%. The left ventricular ejection fraction is within normal limits. Doppler measurements suggest impaired left ventricular relaxation, which is associated with grade I/IV or mild diastolic dysfunction. The left ventricular wall motion is normal. There is no thrombus. There is no ventricular septal defect visualized. Right Ventricle The right ventricle is grossly normal size. Atria The right atrium is normal. The left atrial size is normal. The interatrial septum is intact with no evidence for an atrial septal defect. Mitral Valve There is no evidence of mitral valve prolapse. There is no vegetation seen on the mitral valve. There is no mitral valve stenosis. There is a trace amount of mitral regurgitation. Aortic Valve There is no aortic valvular vegetation. There is mild to moderate aortic stenosis. There is a peak gradient of 36 mm of Hg. There is no LVOT obstruction. There is a trace amount of aortic regurgitation. Tricuspid Valve There is no tricuspid stenosis. There is a trace amount of tricuspid regurgitation. Unable to calculate RVSP due lack of TR jet. Pulmonic Valve There is no pulmonic valvular stenosis. There is a trace amount of pulmonic regurgitation. Great Vessels The aortic root is normal size. Effusions There is no pericardial effusion. : KEL ROSALES > Jessica Escalera
[2018-08-07] MEDS ORDERED: ENOXAPARIN SODIUM INJ 40 MG/0.4 ML DISP.SYRIN SUBCUT SCH (17:00)
[2018-08-07] MEDS: FLUCONAZOLE 100 MG TABLET PO SCH (18:08)
[2018-08-07] MEDS: ENOXAPARIN SODIUM INJ 40 MG/0.4 ML DISP.SYRIN SUBCUT SCH (18:12)
[2018-08-07] MEDS: LOSARTAN POTASSIUM 50 MG TABLET PO SCH (22:23)
[2018-08-07] MEDS: LEVOFLOXACIN 500 MG/D5W RTU 500 MG/100 ML RTUPB IV SCH (22:24)
[2018-08-07] MEDS: SIMETHICONE 80 MG TAB.CHEW PO PRN (22:26)
[2018-08-07] MEDS: ACETAMINOPHEN 325 MG TABLET PO PRN (22:26)
[2018-08-07] MEDS: ATORVASTATIN CALCIUM 10 MG TABLET PO SCH (22:26)
[2018-08-08] MEDS: ACETAMINOPHEN 325 MG TABLET PO PRN ×3 (03:55→21:28)
[2018-08-08] MEDS: BENZONATATE 100 MG CAPSULE PO SCH ×3 (05:22→21:27)
[2018-08-08] MEDS: PANTOPRAZOLE SODIUM 40 MG TABLET.DR PO SCH (05:22)
[2018-08-08] MEDS: NORMAL SALINE 1000 ML 1,000 ML IV PRN ×2 (05:25→20:30)
[2018-08-08] MEDS: INSULIN LISPRO 100 UNIT/ML 3 ML VIAL SUBCUT SCH ×4 (08:45→23:54)
[2018-08-08] MEDS: AMLODIPINE BESYLATE 5 MG TABLET PO SCH (09:05)
[2018-08-08] MEDS: ASCORBIC ACID 500 MG TABLET PO SCH (09:08)
[2018-08-08] MEDS: METFORMIN HCL 500 MG TABLET PO SCH (09:08)
[2018-08-08] MEDS: FERROUS SULFATE 325 MG TABLET PO SCH (09:08)
[2018-08-08] MEDS: ASPIRIN 81 MG TABLET, ENT COATED PO SCH (09:08)
[2018-08-08] MEDS: ENOXAPARIN SODIUM INJ 40 MG/0.4 ML DISP.SYRIN SUBCUT SCH (09:08)
[2018-08-08] MEDS: FLUCONAZOLE 100 MG TABLET PO SCH (09:08)
[2018-08-08] MEDS: SIMETHICONE 80 MG TAB.CHEW PO PRN (09:09)
[2018-08-08] MEDS ORDERED: DOCUSATE SODIUM 100 MG CAPSULE PO PRN (09:45)
[2018-08-08] MEDS ORDERED: IPRATROPIUM/ALBUTEROL 0.5-2.5 MG/3 ML AMPUL NEB ONE (10:48)
[2018-08-08] MEDS ORDERED: IPRATROPIUM/ALBUTEROL 0.5-2.5 MG/3 ML AMPUL NEB PRN (10:52)
--- NOTE | 2018-08-08 11:14 | PDOC PROGRESS REPORT ---
Subjective Progress Note for:: 08/08/18 Subjective:: Patient is currently doing well Patient initially admitted for the pneumonia and also find out patients have a lung mass currently waiting for the pulmonary evaluations Patient was complaining some abdominal discomfort Denied any chest pain to than any shortness of the breath No fever no chills Reason For Visit: TIA,PVD,HTN,CAD,HYPERLIPIDEMIA,DIABETES MELLITUS Physical Exam Vital Signs: Temp Pulse Resp BP Pulse Ox 98.7 F 88 16 147/57 H 95 08/08/18 07:33 08/08/18 10:50 08/08/18 10:50 08/08/18 07:33 08/08/18 10:50 Intake & Output 08/07/18 08/08/18 08/09/18 06:59 06:59 06:59 Intake Total 1999 2666 Balance 1999 2666 Weight 79.1 kg 80.5 kg General appearance: PRESENT: no acute distress, well-developed, well-nourished Head exam: PRESENT: atraumatic, normocephalic Eye exam: PRESENT: conjunctiva pink, EOMI, PERRLA. ABSENT: scleral icterus Ear exam: PRESENT: normal external ear exam Mouth exam: PRESENT: moist, tongue midline Neck exam: PRESENT: full ROM. ABSENT: carotid bruit, JVD, lymphadenopathy, thyromegaly Cardiovascular exam: PRESENT: RRR. ABSENT: diastolic murmur, rubs, systolic murmur Vascular exam: PRESENT: normal capillary refill GI/Abdominal exam: PRESENT: normal bowel sounds, soft. ABSENT: distended, guarding, mass, organolmegaly, rebound, tenderness Rectal exam: PRESENT: deferred Extremities exam: ABSENT: pedal edema Neurological exam: PRESENT: alert, awake, oriented to person, oriented to place, oriented to time, oriented to situation, CN II-XII grossly intact. ABSENT: motor sensory deficit Psychiatric exam: PRESENT: appropriate affect, normal mood. ABSENT: homicidal i deation, suicidal ideation Skin exam: PRESENT: dry, intact, warm. ABSENT: cyanosis, rash Results Laboratory Results: 08/07/18 04:43 08/05/18 08/05/18 15:15 15:15 Creatine Kinase 74 CK-MB (CK-2) 0.98 Troponin I 0.042 Impressions: Chest CT 08/05/18 00:00 IMPRESSION: 1. SPICULATED MASS IN THE RIGHT LOWER LOBE AND SPICULATED CONFLUENT MASS IN THE RIGHT HILUM CONSISTENT WITH MALIGNANCY AND METASTATIC ADENOPATHY. SMALLER MASS IN THE SUBPLEURAL LEFT LOWER LOBE MAY REPRESENT A METASTASIS OR A 2ND MALIGNANCY. SMALL RIGHT PLEURAL EFFUSION. 2. PATCHY AIRSPACE DISEASE IN THE PERIHILAR RIGHT LUNG AND RIGHT LOWER LOBE. MAY REPRESENT INTERSTITIAL SPREAD OF TUMOR OR PNEUMONITIS. INFECTION PROBABLY LESS LIKELY BUT NOT EXCLUDED. Chest X-Ray 08/05/18 15:04 IMPRESSION: INFILTRATE IN THE RIGHT LUNG SUSPICIOUS FOR PNEUMONIA. CANNOT EXCLUDE UNDERLYING MASS IN THE RIGHT LUNG BASE. Head CT 08/05/18 15:04 IMPRESSION: CHRONIC CHANGES OF ATROPHY AND MICROVASCULAR ISCHEMIA. NO ACUTE PROCESS. EVIDENCE OF ACUTE STROKE: NO. Head MRI 08/05/18 15:41 IMPRESSION: Involutional changes of aging with chronic microvascular ischemia. No acute intracranial imaging findings. EVIDENCE OF ACUTE STROKE: NO. Carotid Doppler Study 08/06/18 08:00 IMPRESSION: BILATERAL PLAQUE. NO HEMODYNAMICALLY SIGNIFICANT STENOSIS. Assessment & Plan - Diagnosis (1) Abdominal pain Qualifiers: Abdominal location: unspecified location Qualified Code(s): R10.9 - Unspecified abdominal pain Is this a current diagnosis for this admission?: Yes Plan: With the setting of the lung mass with the lymphadenopathy will get the CT abdomen and pelvis for further any evaluation for any malignancy (2) CAD (coronary artery disease) Qualifiers: Coronary Disease-Associated Artery/Lesion type: [place] artery [place] vs. transplanted heart: [place] heart Associated angina: angina presence unspecified Qualified Code(s): I25.10 - Atherosclerotic heart disease of [place] coronary artery without angina pectoris Is this a current diagnosis for this admission?: Yes Plan: Currently all stable (3) Diabetes mellitus type 2 in nonobese Is this a current diagnosis for this admission?: Yes Plan: Continues to sliding scale we will hold the metformin due to the IV contrast (4) Facial paralysis on left side Is this a current diagnosis for this admission?: Yes Plan: Currently all resolved (5) HLD (hyperlipidemia) Qualifiers: Hyperlipidemia type: pure hypercholesterolemia Qualified Code(s): E78.00 - Pure hypercholesterolemia, unspecified; E78.0 - Pure hypercholesterolemia Is this a current diagnosis for this admission?: Yes (6) HTN (hypertension) Qualifiers: Hypertension type: essential hypertension Qualified Code(s): I10 - Essential (primary) hypertension Is this a current diagnosis for this admission?: Yes Plan: Currently all stable (7) Mass of right lung Is this a current diagnosis for this admission?: Yes Plan: Follow with the pulmonary (8) Pneumonia Qualifiers: Pneumonia type: due to unspecified organism Laterality: right Lung location: lower lobe of lung Qualified Code(s): J18.1 - Lobar pneumonia, unspecified organism Is this a current diagnosis for this admission?: Yes - Time Time Spent with patient: 15-24 minutes Medications reviewed and adjusted accordingly: Yes Anticipated discharge: Other Within: Other - Plan Summary Plan Summary: Get the CT abdomen and pelvis Follow with the pulmonary
[2018-08-08 11:28] LABS: ANION GAP 13 (5-19); BLOOD UREA NITROGEN 13 mg/dL (7-20); CALCIUM 9.3 mg/dL (8.4-10.2); CARBON DIOXIDE 25 mmol/L (22-30); CHLORIDE 102 mmol/L (98-107); GLUCOSE 158 mg/dL (75-110); POTASSIUM 3.6 mmol/L (3.6-5.0); SODIUM 139.6 mmol/L (137-145)
--- NOTE | 2018-08-08 15:23 | RADIOLOGY REPORT (SQ) ---
EXAM DESCRIPTION: CT ABD/PELVIS WITH IV ORAL COMPLETED DATE/TIME: 08/08/2018 1:01 pm REASON FOR STUDY: rt side abd pain COMPARISON: Chest CT 08/06/2018 TECHNIQUE: CT scan of the abdomen and pelvis performed using helical scanning technique with dynamic intravenous contrast injection. Oral contrast was administered. Images reviewed with lung, soft ti ssue, and bone windows. Reconstructed coronal and sagittal MPR images reviewed. Delayed images for ev aluation of the urinary system also acquired. All images stored on PACS. All CT scanners at this facility use dose modulation, iterative reconstruction, and/or weight based d osing when appropriate to reduce radiation dose to as low as reasonably achievable (ALARA). [facility]: Dose Right [facility]: CareDose [facility]: Dose Right [facility]: Teradose 4D [facility]: jobandtalent CONTRAST TYPE AND DOSE: contrast/concentration: Isovue 350.00 mg/ml; Total Contrast Delivered: 100.0 ml; Total Saline Delivered: 71.0 ml RENAL FUNCTION: BUN 13; creatinine 0.71 RADIATION DOSE: CT Rad equipment meets quality standard of care and radiation dose reduction techniq ues were employed. CTDIvol: 10.6 - 15.0 mGy. DLP: 1260 mGy-cm.. LIMITATIONS: None. FINDINGS: LOWER CHEST: Re- demonstration of a dominant spiculated mass within the right lower lobe a s well as scattered smaller nodular densities bilaterally. No acute findings. LIVER: Normal size. No masses. No dilated ducts. SPLEEN: Normal size. A hypoattenuating focus is similar to that seen on comparison imaging. This is of uncertain etiology. PANCREAS: No masses. No significant calcifications. No adjacent inflammation or peripancreatic fluid collections. Pancreatic duct not dilated. GALLBLADDER: Gallstones. No inflammatory changes to suggest cholecystitis. ADRENAL GLANDS: No significant masses or asymmetry. RIGHT KIDNEY AND URETER: No solid masses. No significant calcifications. No hydronephrosis or hyd roureter. LEFT KIDNEY AND URETER: No solid masses. No significant calcifications. No hydronephrosis or hydr oureter. AORTA AND VESSELS: Focal ectasia of the infrarenal abdominal aorta ; this does not meet imaging crite angela for characterization as aneurysm. Calcified and noncalcified atheromatous plaque. RETROPERITONEUM: No retroperitoneal adenopathy, hemorrhage or masses. BOWEL AND PERITONEAL CAVITY: No masses or inflammatory changes. No free fluid or peritoneal masses. APPENDIX: Not visualized. PELVIS: No mass. No free fluid. Normal bladder. ABDOMINAL WALL: A tiny fat containing umbilical hernia is present. BONES: No significant or acute findings. OTHER: There is a partially imaged fluid collection in the right inguinal region which measures on th e order of 6 x 7 cm in the axial plane and demonstrates Hounsfield units consistent with simple fluid . Surgical clips are seen in this region. IMPRESSION: 1. No evidence of intra-abdominal infectious/inflammatory process or other abnormality to correlate to the patient's right-sided abdominal pain. 2. Partially imaged cystic structure in the right inguinal region. Given adjacent surgical clips, t his may represent a seroma. Recommend clinical correlation. TECHNICAL DOCUMENTATION: JOB ID: [id number] Quality ID # [id number]: Final reports with documentation of one or more dose reduction techniques (e.g., Au tomated exposure control, adjustment of the mA and/or kV according to patient size, use of iterative reconstruction technique) 2010 [employer]- All Rights Reserved Reading location - IP/workstation name: [email or web address]
[2018-08-08] MEDS: ATORVASTATIN CALCIUM 10 MG TABLET PO SCH (21:27)
[2018-08-08] MEDS: LOSARTAN POTASSIUM 50 MG TABLET PO SCH (21:27)
[2018-08-08] MEDS: LEVOFLOXACIN 500 MG/D5W RTU 500 MG/100 ML RTUPB IV SCH (21:27)
[2018-08-09 05:26] LABS: ABSOLUTE BASOPHILS # (AUTO) 0.1 10^3/uL (0.0-0.2); ABSOLUTE EOSINOPHILS # (AUTO) 0.3 10^3/uL (0.0-0.6); ABSOLUTE LYMPHOCYTES (AUTO) 1.1 10^3/uL (0.5-4.7); ABSOLUTE MONOCYTES (AUTO) 0.7 10^3/uL (0.1-1.4); ABSOLUTE NEUT (AUTO) 3.8 10^3/uL (1.7-8.2); EOSINOPHILS % (AUTO) 5.4 % (0-6); HEMATOCRIT 31.9 % (36.0-47.0); HEMOGLOBIN 10.7 g/dL (12.0-15.5); LYMPHOCYTES % (AUTO) 17.9 % (13-45); MEAN CORPUSCULAR HEMOGLOBIN 30.5 pg (27.0-33.4); MEAN CORPUSCULAR HGB CONC 33.4 g/dL (32.0-36.0); MEAN CORPUSCULAR VOLUME 91 fl (80-97); MONOCYTES % (AUTO) 11.9 % (3-13); RED BLOOD COUNT 3.49 10^6/uL (3.72-5.28); RED CELL DISTRIBUTION WIDTH 13.2 % (11.5-14.0); SEGMENTED NEUTROPHILS % (AUTO) 63.8 % (42-78); TOTAL CELLS COUNTED % (AUTO) 100 %; WHITE BLOOD COUNT 5.9 10^3/uL (4.0-10.5)
[2018-08-09] MEDS: BENZONATATE 100 MG CAPSULE PO SCH ×4 (05:29→21:46)
[2018-08-09] MEDS: PANTOPRAZOLE SODIUM 40 MG TABLET.DR PO SCH (05:30)
[2018-08-09 05:40] LABS: ANION GAP 9 (5-19); BLOOD UREA NITROGEN 10 mg/dL (7-20); CALCIUM 8.8 mg/dL (8.4-10.2); CARBON DIOXIDE 24 mmol/L (22-30); CHLORIDE 107 mmol/L (98-107); GLUCOSE 120 mg/dL (75-110); POTASSIUM 3.3 mmol/L (3.6-5.0); SODIUM 140.1 mmol/L (137-145)
[2018-08-09 05:56] LABS: PLATELET COUNT 78 10^3/uL (150-450)
[2018-08-09] MEDS: INSULIN LISPRO 100 UNIT/ML 3 ML VIAL SUBCUT SCH ×4 (08:02→21:43)
[2018-08-09] MEDS: ASCORBIC ACID 500 MG TABLET PO SCH (10:00)
[2018-08-09] MEDS: ASPIRIN 81 MG TABLET, ENT COATED PO SCH (10:00)
[2018-08-09] MEDS: FERROUS SULFATE 325 MG TABLET PO SCH (10:00)
[2018-08-09] MEDS: AMLODIPINE BESYLATE 5 MG TABLET PO SCH (10:00)
[2018-08-09] MEDS: FLUCONAZOLE 100 MG TABLET PO SCH (10:00)
--- NOTE | 2018-08-09 10:09 | PDOC PROGRESS REPORT ---
Subjective Progress Note for:: 08/09/18 Subjective:: Patient is currently doing much better Patient CT abdomen pelvis did not see any significant finding Patient's denied any chest pain to than any shortness of the breath patient seen by Dr. Molina but the lung mass Reason For Visit: TIA,PVD,HTN,CAD,HYPERLIPIDEMIA,DIABETES MELLITUS Physical Exam Vital Signs: Temp Pulse Resp BP Pulse Ox 98.9 F 93 20 156/78 H 96 08/09/18 07:27 08/09/18 07:27 08/09/18 07:27 08/09/18 07:27 08/09/18 07:27 Intake & Output 08/08/18 08/09/18 08/10/18 06:59 06:59 06:59 Intake Total 2666 1867 Balance 2666 1867 Weight 80.5 kg 79.2 kg General appearance: PRESENT: no acute distress, well-developed, well-nourished Head exam: PRESENT: atraumatic, normocephalic Eye exam: PRESENT: conjunctiva pink, EOMI, PERRLA. ABSENT: scleral icterus Ear exam: PRESENT: normal external ear exam Mouth exam: PRESENT: moist, tongue midline Neck exam: PRESENT: full ROM. ABSENT: carotid bruit, JVD, lymphadenopathy, thyromegaly Respiratory exam: PRESENT: clear to auscultation tevin Cardiovascular exam: PRESENT: RRR. ABSENT: diastolic murmur, rubs, systolic murmur Vascular exam: PRESENT: normal capillary refill GI/Abdominal exam: PRESENT: normal bowel sounds, soft. ABSENT: distended, guarding, mass, organolmegaly, rebound, tenderness Rectal exam: PRESENT: deferred Extremities exam: ABSENT: pedal edema Musculoskeletal exam: PRESENT: ambulatory Neurological exam: PRESENT: alert, awake, oriented to person, oriented to place, oriented to time, oriented to situation, CN II-XII grossly intact. ABSENT: motor sensory deficit Psychiatric exam: PRESENT: appropriate affect, normal mood. ABSENT: homicidal ideation, suicidal ideation Skin exam: PRESENT: dry, intact, warm. ABSENT: cyanosis, rash Results Laboratory Results: 08/09/18 04:56 08/09/18 04:56 08/08/18 08/09/18 08/09/18 10:54 04:56 04:56 WBC 5.9 RBC 3.49 L Hgb 10.7 L Hct 31.9 L MCV 91 MCH 30.5 MCHC 33.4 RDW 13.2 Plt Count 78 L Seg Neutrophils % 63.8 Lymphocytes % 17.9 Monocytes % 11.9 Eosinophils % 5.4 Basophils % 1.0 Absolute Neutrophils 3.8 Absolute Lymphocytes 1.1 Absolute Monocytes 0.7 Absolute Eosinophils 0.3 Absolute Basophils 0.1 Sodium 139.6 140.1 Potassium 3.6 3.3 L Chloride 102 107 Carbon Dioxide 25 24 Anion Gap 13 9 BUN 13 10 Creatinine 0.71 0.66 Est GFR ( Amer) > 60 > 60 Est GFR (Non-Af Amer) > 60 > 60 Glucose 158 H 120 H Calcium 9.3 8.8 08/06/18 04:30 Sputum Gram Stain - Final 08/06/18 04:30 Sputum Sputum Culture - Final C.albicans/C.dubliniensis Reduced Normal N[place] 08/05/18 08/05/18 15:15 15:15 Creatine Kinase 74 CK-MB (CK-2) 0.98 Troponin I 0.042 Impressions: Chest CT 08/05/18 00:00 IMPRESSION: 1. SPICULATED MASS IN THE RIGHT LOWER LOBE AND SPICULATED CONFLUENT MASS IN THE RIGHT HILUM CONSISTENT WITH MALIGNANCY AND METASTATIC ADENOPATHY. SMALLER MASS IN THE SUBPLEURAL LEFT LOWER LOBE MAY REPRESENT A METASTASIS OR A 2ND MALIGNANCY. SMALL RIGHT PLEURAL EFFUSION. 2. PATCHY AIRSPACE DISEASE IN THE PERIHILAR RIGHT LUNG AND RIGHT LOWER LOBE. MAY REPRESENT INTERSTITIAL SPREAD OF TUMOR OR PNEUMONITIS. INFECTION PROBABLY LESS LIKELY BUT NOT EXCLUDED. Chest X-Ray 08/05/18 15:04 IMPRESSION: INFILTRATE IN THE RIGHT LUNG SUSPICIOUS FOR PNEUMONIA. CANNOT EXCLUDE UNDERLYING MASS IN THE RIGHT LUNG BASE. Head CT 08/05/18 15:04 IMPRESSION: CHRONIC CHANGES OF ATROPHY AND MICROVASCULAR ISCHEMIA. NO ACUTE PROCESS. EVIDENCE OF ACUTE STROKE: NO. Head MRI 08/05/18 15:41 IMPRESSION: Involutional changes of aging with chronic microvascular ischemia. No acute intracranial imaging findings. EVIDENCE OF ACUTE STROKE: NO. Carotid Doppler Study 08/06/18 08:00 IMPRESSION: BILATERAL PLAQUE. NO HEMODYNAMICALLY SIGNIFICANT STENOSIS. Abdomen/Pelvis CT 08/08/18 00:00 IMPRESSION: 1. No evidence of intra-abdominal infectious/inflammatory process or other abnormality to correlate to the patient's right-sided abdominal pain. 2. Partially imaged cystic structure in the right inguinal region. Given adjacent surgical clips, this may represent a seroma. Recommend clinical correlation. Assessment & Plan - Diagnosis (1) Abdominal pain Qualifiers: Abdominal location: unspecified location Qualified Code(s): R10.9 - Unspecified abdominal pain Is this a current diagnosis for this admission?: Yes Plan: Patient sting most likely from gas currently all resolved Patient CT abdomen pelvis did not find any significant changes (2) CAD (coronary artery disease) Qualifiers: Coronary Disease-Associated Artery/Lesion type: [place] artery [place] vs. transplanted heart: [place] heart Associated angina: angina presence unspecified Qualified Code(s): I25.10 - Atherosclerotic heart disease of [place] coronary artery without angina pectoris Is this a current diagnosis for this admission?: Yes Plan: Currently all stable (3) Diabetes mellitus type 2 in nonobese Is this a current diagnosis for this admission?: Yes Plan: Continues to sliding scale we will hold the metformin due to the IV contrast (4) Facial paralysis on left side Is this a current diagnosis for this admission?: Yes Plan: Currently all resolved (5) HLD (hyperlipidemia) Qualifiers: Hyperlipidemia type: pure hypercholesterolemia Qualified Code(s): E78.00 - Pure hypercholesterolemia, unspecified; E78.0 - Pure hypercholesterolemia Is this a current diagnosis for this admission?: Yes (6) HTN (hypertension) Qualifiers: Hypertension type: essential hypertension Qualified Code(s): I10 - Essential (primary) hypertension Is this a current diagnosis for this admission?: Yes Plan: Currently all stable (7) Mass of right lung Is this a current diagnosis for this admission?: Yes Plan: Follow with the pulmonary (8) Pneumonia Qualifiers: Pneumonia type: due to unspecified organism Laterality: right Lung location: lower lobe of lung Qualified Code(s): J18.1 - Lobar pneumonia, unspecified organism Is this a current diagnosis for this admission?: Yes Plan: Continues to IV antibiotic - Time Time Spent with patient: 15-24 minutes Medications reviewed and adjusted accordingly: Yes Anticipated discharge: Home Within: Other - Plan Summary Plan Summary: Continues to current medication
[2018-08-09] MEDS: LOSARTAN POTASSIUM 50 MG TABLET PO SCH (21:44)
[2018-08-09] MEDS: ATORVASTATIN CALCIUM 10 MG TABLET PO SCH (21:46)
[2018-08-09] MEDS: LEVOFLOXACIN 500 MG/D5W RTU 500 MG/100 ML RTUPB IV SCH (21:47)
[2018-08-10 05:12] LABS: ANION GAP 9 (5-19); BLOOD UREA NITROGEN 10 mg/dL (7-20); CALCIUM 8.5 mg/dL (8.4-10.2); CARBON DIOXIDE 26 mmol/L (22-30); CHLORIDE 106 mmol/L (98-107); GLUCOSE 131 mg/dL (75-110); POTASSIUM 3.4 mmol/L (3.6-5.0); SODIUM 140.5 mmol/L (137-145)
[2018-08-10] MEDS: BENZONATATE 100 MG CAPSULE PO SCH ×3 (05:36→21:25)
[2018-08-10] MEDS: PANTOPRAZOLE SODIUM 40 MG TABLET.DR PO SCH (05:36)
[2018-08-10] MEDS: INSULIN LISPRO 100 UNIT/ML 3 ML VIAL SUBCUT SCH ×4 (07:44→21:40)
[2018-08-10] MEDS: ASPIRIN 81 MG TABLET, ENT COATED PO SCH (10:10)
[2018-08-10] MEDS: FERROUS SULFATE 325 MG TABLET PO SCH (10:10)
[2018-08-10] MEDS: FLUCONAZOLE 100 MG TABLET PO SCH (10:10)
[2018-08-10] MEDS: AMLODIPINE BESYLATE 5 MG TABLET PO SCH ×2 (10:10→21:25)
[2018-08-10] MEDS: ASCORBIC ACID 500 MG TABLET PO SCH (10:10)
--- NOTE | 2018-08-10 11:13 | PDOC CONSULTATION ---
Consultation Consult Date: 08/08/18 Attending physician:: KEL ROSALES Consult reason:: lung opacities History of Present Illness Admission Date/PCP: 08/05/18 18:20 KEL ROSALES History of Present Illness: SHEEBA JOHANSEN is a 78 year old female, presented complaining of a cough productive of yellow phlegm and some shortness of breath is been going on 2-3 days prior to admission. She states she has had a cold the entire year the last 2-3 days she has been coughing up some streaks of blood dates unknown no history of chronic lung disease as a child or adolescent she does wear oxygen at home she admits to exposure to large amounts of passive smoke as a child as well as an adult she has self smoked a pack a week for 30 years last 30 years she denies any occupational exposure to potential respiratory toxins no pets no recent travel no angina-like chest pain sleeps on 1-2 pillows no PND she admits to snoring and restless sleep nocturia 1-3 times per night she denies unrestful sleep or excessive daytime somnolence Past Medical History Cardiac Medical History: Reports: Coronary Artery Disease, Hyperlipidema, Hypertension - medication, Peripheral Vascular Disease Denies: Myocardial Infarction Pulmonary Medical History: Denies: Asthma Neurological Medical History: Reports: Ischemic CVA Denies: Seizures Endocrine Medical History: Reports: Diabetes Mellitus Type 2 GI Medical History: Denies: Hepatitis, Hiatal Hernia Musculoskeltal Medical History: Reports: Arthritis Psychiatric Medical History: Denies: Depression Hematology: Denies: Anemia, Sickle Cell Disease Past Surgical History Past Surgical History: Denies: Amputation, Mastectomy, Pacemaker Social History Information Source: Patient, [facility] Records Lives with: Spouse/Significant other Smoking Status: Former Smoker Passive smoke exposure as: Both Frequency of Alcohol Use: None Hx Recreational Drug Use: No Drugs: None Hx Prescription Drug Abuse: No Do you have pets?: No Have you had any respiratory illnesses as a child?: No Family History Family History: DM, Hypertension, Malignancy Parental Family History Reviewed: Yes Children Family History Reviewed: Yes Sibling(s) Family History Reviewed.: Yes Medication/Allergy Home Medications: Amlodipine Besylate [Norvasc 5 mg Tablet] 5 mg PO DAILY 08/05/18 Ascorbate Calcium [Vitamin C] 500 mg PO DAILY 08/05/18 Benzonatate [Tessalon Perles 100 mg Capsule] 200 mg PO Q8HP PRN 08/05/18 Ferrous Sulfate [Feosol 325 mg Tablet] 325 mg PO DAILY 08/05/18 Irbesartan [Avapro] 300 mg PO DAILY 08/05/18 Metformin HCl 500 mg PO BID 08/05/18 Pravastatin Sodium [Pravachol] 40 mg PO DAILY 08/05/18 Allergies/Adverse Reactions: ampicillin [Ampicillin] Allergy (Verified 07/25/12 12:07) RED BLOTCHES Penicillins Allergy (Verified 07/25/12 12:07) RED BLOTCHES Review of Systems Constitutional: PRESENT: chills, fatigue, weakness, weight loss. ABSENT: headache(s), night sweats Eyes: ABSENT: visual disturbances Ears: ABSENT: hearing changes Nose, Mouth, and Throat: ABSENT: mouth pain, sore throat Cardiovascular: PRESENT: dyspnea on exertion. ABSENT: chest pain, edema, orthropnea, palpitations Respiratory: PRESENT: cough, hemoptysis, sputum Gastrointestinal: ABSENT: abdominal pain, bloating, coffee ground emesis, dysphagia, hematemesis, hematochezia, melena Genitourinary: ABSENT: dysuria, hematuria Musculoskeletal: ABSENT: joint swelling Integumentary: ABSENT: pruritus, rash - [id number] Neurological: PRESENT: abnormal speech, lack of coordination, numbness, paresthesias, other - Time of presentation presentation had what appeared to be a TIA. ABSENT: abnormal gait, abnormal movements, confusion, convulsions Psychiatric: ABSENT: hallucinations, homidical ideation, suicidal ideation Endocrine: ABSENT: cold intolerance, heat intolerance, polydipsia, polyuria - 44569 Hematologic/Lymphatic: ABSENT: easy bruising, lymphadenopathy Allergic/Immunologic: PRESENT: seasonal rhinorrhea Physical Exam Vital Signs: Temp Pulse Resp BP Pulse Ox 98.7 F 84 16 147/57 H 95 08/08/18 07:33 08/08/18 07:33 08/08/18 07:33 08/08/18 07:33 08/08/18 07:33 Intake & Output 08/07/18 08/08/18 08/09/18 06:59 06:59 06:59 Intake Total 1999 6435 Balance 1999 2666 Weight 79.1 kg 80.5 kg General appearance: PRESENT: no acute distress, cooperative, disheveled, well- developed, well-nourished Head exam: PRESENT: atraumatic, normocephalic Eye exam: PRESENT: conjunctiva pale, EOMI. ABSENT: nystagmus, periorbital swelling, scleral icterus Mouth exam: PRESENT: dry mucosa, neck supple, tongue midline Neck exam: ABSENT: carotid bruit, full ROM, JVD, lymphadenopathy, meningismus, tenderness, thyromegaly, tracheal deviation, tracheostomy, other Respiratory exam: PRESENT: decreased breath sounds, prolonged expiratory phas, rales, rhonchi, unlabored, wheezes. ABSENT: retraction, stridor Cardiovascular exam: PRESENT: RRR, +S1, +S2 Pulses: PRESENT: normal radial pulses GI/Abdominal exam: PRESENT: soft. ABSENT: tenderness - 15119 Extremities exam: ABSENT: calf tenderness, clubbing - 18891, joint swelling, pedal edema Musculoskeletal exam: ABSENT: deformity, dislocation Neurological exam: PRESENT: alert, awake Psychiatric exam: PRESENT: appropriate affect Skin exam: PRESENT: dry, warm - [id number] Results Laboratory Results: 08/07/18 04:43 08/07/18 04:43 08/05/18 08/05/18 15:15 15:15 Creatine Kinase 74 CK-MB (CK-2) 0.98 Troponin I 0.042 Impressions: Chest CT 08/05/18 00:00 IMPRESSION: 1. SPICULATED MASS IN THE RIGHT LOWER LOBE AND SPICULATED CONFLUENT MASS IN THE RIGHT HILUM CONSISTENT WITH MALIGNANCY AND METASTATIC ADENOPATHY. SMALLER MASS IN THE SUBPLEURAL LEFT LOWER LOBE MAY REPRESENT A METASTASIS OR A 2ND MALIGNANCY. SMALL RIGHT PLEURAL EFFUSION. 2. PATCHY AIRSPACE DISEASE IN THE PERIHILAR RIGHT LUNG AND RIGHT LOWER LOBE. MAY REPRESENT INTERSTITIAL SPREAD OF TUMOR OR PNEUMONITIS. INFECTION PROBABLY LESS LIKELY BUT NOT EXCLUDED. Chest X-Ray 08/05/18 15:04 IMPRESSION: INFILTRATE IN THE RIGHT LUNG SUSPICIOUS FOR PNEUMONIA. CANNOT EXCLUDE UNDERLYING MASS IN THE RIGHT LUNG BASE. Head CT 08/05/18 15:04 IMPRESSION: CHRONIC CHANGES OF ATROPHY AND MICROVASCULAR ISCHEMIA. NO ACUTE PROCESS. EVIDENCE OF ACUTE STROKE: NO. Head MRI 08/05/18 15:41 IMPRESSION: Involutional changes of aging with chronic microvascular ischemia. No acute intracranial imaging findings. EVIDENCE OF ACUTE STROKE: NO. Carotid Doppler Study 08/06/18 08:00 IMPRESSION: BILATERAL PLAQUE. NO HEMODYNAMICALLY SIGNIFICANT STENOSIS. Assessment & Plan - Diagnosis (1) Facial paralysis on left side Is this a current diagnosis for this admission?: Yes Plan: Suspect TIA as this is resolving with little to no residual (2) Mass of right lung Is this a current diagnosis for this admission?: Yes Plan: Will need bronchoscopy however would like to follow this as an outpatient as the results of bronchoscopy and indicate face of acute inflammation are less likely to yield a diagnosis (3) Pneumonia Qualifiers: Pneumonia type: due to unspecified organism Laterality: right Lung location: lower lobe of lung Qualified Code(s): J18.1 - Lobar pneumonia, unspecified organism Is this a current diagnosis for this admission?: Yes Plan: In view of her neurological problems remaining may be secondary to aspiration will check a modified barium swallow
[2018-08-10] MEDS: ACETAMINOPHEN 325 MG TABLET PO PRN (18:02)
--- NOTE | 2018-08-10 19:26 | PDOC PROGRESS REPORT ---
Subjective Progress Note for:: 08/07/18 Subjective:: Patient reported improvement in her expectoration with use of Flutter device. No chest pain or difficulty with breathing. No fever or chills. no nausea or vomiting. I discussed case with radiologist, her lesion is too central to allow for CT guided biopsy. Reason For Visit: TIA,PVD,HTN,CAD,HYPERLIPIDEMIA,DIABETES MELLITUS Physical Exam Vital Signs: Temp Pulse Resp BP Pulse Ox 98.4 F 105 H 16 148/59 H 96 08/07/18 12:00 08/07/18 14:00 08/07/18 12:00 08/07/18 12:00 08/07/18 12:00 Intake & Output 08/06/18 08/07/18 08/08/18 06:59 06:59 06:59 Intake Total 150 1999 237 Balance 150 1999 237 Weight 77.7 kg 79.1 kg Physical Exam: General appearance: PRESENT: no acute distress Head exam: PRESENT: atraumatic, normocephalic Eye exam: PRESENT: conjunctiva pink, EOMI, PERRLA. ABSENT: pallor, scleral icterus Ear exam: PRESENT: normal external ear exam Mouth exam: PRESENT: moist Respiratory exam: PRESENT: clear to auscultation tevin, decreased breath sounds Cardiovascular exam: PRESENT: RRR. ABSENT: diastolic murmur, rubs, systolic murmur GI/Abdominal exam: PRESENT: normal bowel sounds, soft. ABSENT: distended, guarding, mass, organomegaly, rebound, tenderness Extremities exam: ABSENT: pedal edema Neurological exam: PRESENT: alert, awake, oriented to person, oriented to place, oriented to time, oriented to situation, CN II-XII grossly intact, other - there is improvement in her left facial droop.. ABSENT: motor sensory deficit Psychiatric exam: PRESENT: appropriate affect, normal mood. ABSENT: homicidal ideation, suicidal ideation Skin exam: PRESENT: dry, warm Results Laboratory Results: 08/07/18 04:43 08/07/18 04:43 08/07/18 08/07/18 04:43 04:43 WBC 5.8 RBC 3.43 L Hgb 10.6 L Hct 31.4 L MCV 91 MCH 30.8 MCHC 33.7 RDW 13.1 Plt Count 78 L Seg Neutrophils % 62.2 Lymphocytes % 19.5 Monocytes % 11.0 Eosinophils % 6.5 H Basophils % 0.8 Absolute Neutrophils 3.6 Absolute Lymphocytes 1.1 Absolute Monocytes 0.6 Absolute Eosinophils 0.4 Absolute Basophils 0.0 Sodium 140.2 Potassium 3.7 Chloride 107 Carbon Dioxide 25 Anion Gap 8 BUN 16 Creatinine 0.72 Est GFR ( Amer) > 60 Est GFR (Non-Af Amer) > 60 Glucose 121 H Calcium 9.0 08/05/18 08/05/18 15:15 15:15 Creatine Kinase 74 CK-MB (CK-2) 0.98 Troponin I 0.042 Impressions: Chest CT 08/05/18 00:00 IMPRESSION: 1. SPICULATED MASS IN THE RIGHT LOWER LOBE AND SPICULATED CONFLUENT MASS IN THE RIGHT HILUM CONSISTENT WITH MALIGNANCY AND METASTATIC ADENOPATHY. SMALLER MASS IN THE SUBPLEURAL LEFT LOWER LOBE MAY REPRESENT A METASTASIS OR A 2ND MALIGNANCY. SMALL RIGHT PLEURAL EFFUSION. 2. PATCHY AIRSPACE DISEASE IN THE PERIHILAR RIGHT LUNG AND RIGHT LOWER LOBE. MAY REPRESENT INTERSTITIAL SPREAD OF TUMOR OR PNEUMONITIS. INFECTION PROBABLY LESS LIKELY BUT NOT EXCLUDED. Chest X-Ray 08/05/18 15:04 IMPRESSION: INFILTRATE IN THE RIGHT LUNG SUSPICIOUS FOR PNEUMONIA. CANNOT EXCLUDE UNDERLYING MASS IN THE RIGHT LUNG BASE. Head CT 08/05/18 15:04 IMPRESSION: CHRONIC CHANGES OF ATROPHY AND MICROVASCULAR ISCHEMIA. NO ACUTE PROCESS. EVIDENCE OF ACUTE STROKE: NO. Head MRI 08/05/18 15:41 IMPRESSION: Involutional changes of aging with chronic microvascular ischemia. No acute intracranial imaging findings. EVIDENCE OF ACUTE STROKE: NO. Carotid Doppler Study 08/06/18 08:00 IMPRESSION: BILATERAL PLAQUE. NO HEMODYNAMICALLY SIGNIFICANT STENOSIS. Assessment & Plan - Diagnosis (1) Facial paralysis on left side Is this a current diagnosis for this admission?: Yes (2) Pneumonia Qualifiers: Pneumonia type: due to unspecified organism Laterality: right Lung location: lower lobe of lung Qualified Code(s): J18.1 - Lobar pneumonia, unspecified organism Is this a current diagnosis for this admission?: Yes (3) HTN (hypertension) Qualifiers: Hypertension type: essential hypertension Qualified Code(s): I10 - Essential (primary) hypertension Is this a current diagnosis for this admission?: Yes (4) CAD (coronary artery disease) Qualifiers: Coronary Disease-Associated Artery/Lesion type: [place] artery [place] vs. transplanted heart: hughes heart Associated angina: angina presence unspecified Qualified Code(s): I25.10 - Atherosclerotic heart disease of hughes coronary artery without angina pectoris Is this a current diagnosis for this admission?: Yes (5) PVD (peripheral vascular disease) Is this a current diagnosis for this admission?: Yes (6) Old lacunar stroke without late effect Is this a current diagnosis for this admission?: Yes (7) Diabetes mellitus type 2 in nonobese Is this a current diagnosis for this admission?: Yes (8) HLD (hyperlipidemia) Qualifiers: Hyperlipidemia type: pure hypercholesterolemia Qualified Code(s): E78.00 - Pure hypercholesterolemia, unspecified; E78.0 - Pure hypercholesterolemia Is this a current diagnosis for this admission?: Yes (9) Vitamin D deficiency Is this a current diagnosis for this admission?: Yes (10) Vitamin B 12 deficiency Is this a current diagnosis for this admission?: Yes (12) Chronic headache disorder Qualifiers: Headache type: unspecified Intractability: not intractable Qualified Code(s): R51 - Headache Is this a current diagnosis for this admission?: Yes (13) Mass of right lung Is this a current diagnosis for this admission?: Yes - Time Time Spent with patient: 25-34 minutes Medications reviewed and adjusted accordingly: Yes Anticipated discharge: Home Within: Other - Inpatient Certification Based on my medical assessment, after consideration of the patient's comorbidities, presenting symptoms, or acuity I expect that the services needed warrant INPATIENT care.: Yes I certify that my determination is in accordance with my understanding of Medicare's requirements for reasonable and necessary INPATIENT services [42 CFR 412.3e].: Yes Medical Necessity: Significant Comorbidiites Make Outpatient Treatment Too Risky, Need Close Monitoring Due to Risk of Patient Decompensation, Need For IV Fluids, Need For Continuous Telemetry Monitoring, Need for Nebulizer Therapy and Monitoring of Response, Need for IV Antibiotics, Risk of Complication if Not Cared For in Hospital, Risk of Diagnosis Which Will Require Inpatient Eval/Care/Monitoring Post Hospital Care: D/C Concreting Supervisor Documentation - Plan Summary Plan Summary: I will request pulmonary consultation with Dr. Familia Molina for possible bronchoscopy and biopsy of lung mass. Continue IV Levofloxacin coverage. Add oral Diflucan 100 mg p.o daily to her medication regimen. Maintain on all other current medication management.
--- NOTE | 2018-08-10 19:32 | PDOC PROGRESS REPORT ---
Subjective Progress Note for:: 08/10/18 Subjective:: Patient reported oral pain with chewing her meat due to recent dental extraction prior to her hospitalization. No fever or chills. There is some demonstrable difficulty with swallowing. Her facial weakness is improving. No chest pain or difficulty with breathing. Reason For Visit: TIA,PVD,HTN,CAD,HYPERLIPIDEMIA,DIABETES MELLITUS Physical Exam Vital Signs: Temp Pulse Resp BP Pulse Ox 98.8 F 82 18 150/70 H 93 08/10/18 16:01 08/10/18 17:55 08/10/18 17:55 08/10/18 16:01 08/10/18 17:55 Intake & Output 08/09/18 08/10/18 08/11/18 06:59 06:59 06:59 Intake Total 1867 1587 337 Output Total 0 Balance 1867 1587 337 Weight 79.2 kg 79 kg Physical Exam: General appearance: PRESENT: no acute distress Head exam: PRESENT: atraumatic, normocephalic Eye exam: PRESENT: conjunctiva pink, EOMI, PERRLA. ABSENT: pallor, scleral icterus Ear exam: PRESENT: normal external ear exam Mouth exam: PRESENT: moist Respiratory exam: PRESENT: clear to auscultation tevin, decreased breath sounds Cardiovascular exam: PRESENT: RRR. ABSENT: diastolic murmur, rubs, systolic murmur GI/Abdominal exam: PRESENT: normal bowel sounds, soft. ABSENT: distended, guarding, mass, organomegaly, rebound, tenderness Extremities exam: ABSENT: pedal edema Neurological exam: PRESENT: alert, awake, oriented to person, oriented to place, oriented to time, oriented to situation, CN II-XII grossly intact, other - resolved her left facial droop. ABSENT: motor sensory deficit Psychiatric exam: PRESENT: appropriate affect, normal mood. ABSENT: homicidal ideation, suicidal ideation Skin exam: PRESENT: dry, warm Results Laboratory Results: 08/09/18 04:56 08/10/18 04:21 08/10/18 04:21 Sodium 140.5 Potassium 3.4 L Chloride 106 Carbon Dioxide 26 Anion Gap 9 BUN 10 Creatinine 0.74 Est GFR ( Amer) > 60 Est GFR (Non-Af Amer) > 60 Glucose 131 H Calcium 8.5 08/05/18 08/05/18 15:15 15:15 Creatine Kinase 74 CK-MB (CK-2) 0.98 Troponin I 0.042 Impressions: Chest CT 08/05/18 00:00 IMPRESSION: 1. SPICULATED MASS IN THE RIGHT LOWER LOBE AND SPICULATED CONFLUENT MASS IN THE RIGHT HILUM CONSISTENT WITH MALIGNANCY AND METASTATIC ADENOPATHY. SMALLER MASS IN THE SUBPLEURAL LEFT LOWER LOBE MAY REPRESENT A METASTASIS OR A 2ND MALIGNANCY. SMALL RIGHT PLEURAL EFFUSION. 2. PATCHY AIRSPACE DISEASE IN THE PERIHILAR RIGHT LUNG AND RIGHT LOWER LOBE. MAY REPRESENT INTERSTITIAL SPREAD OF TUMOR OR PNEUMONITIS. INFECTION PROBABLY LESS LIKELY BUT NOT EXCLUDED. Chest X-Ray 08/05/18 15:04 IMPRESSION: INFILTRATE IN THE RIGHT LUNG SUSPICIOUS FOR PNEUMONIA. CANNOT EXCLUDE UNDERLYING MASS IN THE RIGHT LUNG BASE. Head CT 08/05/18 15:04 IMPRESSION: CHRONIC CHANGES OF ATROPHY AND MICROVASCULAR ISCHEMIA. NO ACUTE PROCESS. EVIDENCE OF ACUTE STROKE: NO. Head MRI 08/05/18 15:41 IMPRESSION: Involutional changes of aging with chronic microvascular ischemia. No acute intracranial imaging findings. EVIDENCE OF ACUTE STROKE: NO. Carotid Doppler Study 08/06/18 08:00 IMPRESSION: BILATERAL PLAQUE. NO HEMODYNAMICALLY SIGNIFICANT STENOSIS. Abdomen/Pelvis CT 08/08/18 00:00 IMPRESSION: 1. No evidence of intra-abdominal infectious/inflammatory process or other abnormality to correlate to the patient's right-sided abdominal pain. 2. Partially imaged cystic structure in the right inguinal region. Given adjacent surgical clips, this may represent a seroma. Recommend clinical correlation. Assessment & Plan - Diagnosis (1) Facial paralysis on left side Is this a current diagnosis for this admission?: Yes (2) Pneumonia Qualifiers: Pneumonia type: due to unspecified organism Laterality: right Lung location: lower lobe of lung Qualified Code(s): J18.1 - Lobar pneumonia, unspecified organism Is this a current diagnosis for this admission?: Yes (3) HTN (hypertension) Qualifiers: Hypertension type: essential hypertension Qualified Code(s): I10 - Essential (primary) hypertension Is this a current diagnosis for this admission?: Yes (4) CAD (coronary artery disease) Qualifiers: Coronary Disease-Associated Artery/Lesion type: [place] artery [place] vs. transplanted heart: viejas heart Associated angina: angina presence unspecified Qualified Code(s): I25.10 - Atherosclerotic heart disease of [place] coronary artery without angina pectoris Is this a current diagnosis for this admission?: Yes (5) PVD (peripheral vascular disease) Is this a current diagnosis for this admission?: Yes (6) Old lacunar stroke without late effect Is this a current diagnosis for this admission?: Yes (7) Diabetes mellitus type 2 in nonobese Is this a current diagnosis for this admission?: Yes (8) HLD (hyperlipidemia) Qualifiers: Hyperlipidemia type: pure hypercholesterolemia Qualified Code(s): E78.00 - Pure hypercholesterolemia, unspecified; E78.0 - Pure hypercholesterolemia Is this a current diagnosis for this admission?: Yes (9) Vitamin D deficiency Is this a current diagnosis for this admission?: Yes (10) Vitamin B 12 deficiency Is this a current diagnosis for this admission?: Yes (12) Chronic headache disorder Qualifiers: Headache type: unspecified Intractability: not intractable Qualified Code(s): R51 - Headache Is this a current diagnosis for this admission?: Yes (13) Mass of right lung Is this a current diagnosis for this admission?: Yes - Time Time Spent with patient: 25-34 minutes Medications reviewed and adjusted accordingly: Yes Anticipated discharge: Home with Homehealth Within: Other - Inpatient Certification Based on my medical assessment, after consideration of the patient's comorbidities, presenting symptoms, or acuity I expect that the services needed warrant INPATIENT care.: Yes I certify that my determination is in accordance with my understanding of Medicare's requirements for reasonable and necessary INPATIENT services [42 CFR 412.3e].: Yes Medical Necessity: Significant Comorbidiites Make Outpatient Treatment Too Risky, Need Close Monitoring Due to Risk of Patient Decompensation, Need For IV Fluids, Need For Continuous Telemetry Monitoring, Need for IV Antibiotics, Risk of Complication if Not Cared For in Hospital, Risk of Diagnosis Which Will Require Inpatient Eval/Care/Monitoring Post Hospital Care: D/C Network Strategist Documentation - Plan Summary Plan Summary: Continue current medication management. Follow up on barium swallow evaluation findings. Change diet to cut meat. Pulmonary business analyst consultant input appreciated.
[2018-08-10] MEDS: ATORVASTATIN CALCIUM 10 MG TABLET PO SCH (21:25)
[2018-08-10] MEDS: POTASSIUM CHLORIDE 10 MEQ CAPSULE.ER PO SCH ×2 (21:25→22:57)
[2018-08-10] MEDS: LOSARTAN POTASSIUM 50 MG TABLET PO SCH (21:26)
[2018-08-10] MEDS: LEVOFLOXACIN 500 MG/D5W RTU 500 MG/100 ML RTUPB IV SCH (21:26)
[2018-08-11] MEDS: ACETAMINOPHEN 325 MG TABLET PO PRN (01:53)
[2018-08-11] MEDS: POTASSIUM CHLORIDE 10 MEQ CAPSULE.ER PO SCH ×2 (01:53→05:14)
[2018-08-11] MEDS: PANTOPRAZOLE SODIUM 40 MG TABLET.DR PO SCH (05:14)
[2018-08-11] MEDS: BENZONATATE 100 MG CAPSULE PO SCH ×3 (05:14→22:03)
[2018-08-11 05:59] LABS: ABSOLUTE BASOPHILS # (AUTO) 0.1 10^3/uL (0.0-0.2); ABSOLUTE EOSINOPHILS # (AUTO) 0.3 10^3/uL (0.0-0.6); ABSOLUTE LYMPHOCYTES (AUTO) 1.2 10^3/uL (0.5-4.7); ABSOLUTE MONOCYTES (AUTO) 1.1 10^3/uL (0.1-1.4); BASOPHILS % (AUTO) 0.9 % (0-2); EOSINOPHILS % (AUTO) 3.5 % (0-6); HEMOGLOBIN 11.1 g/dL (12.0-15.5); LYMPHOCYTES % (AUTO) 13.5 % (13-45); MEAN CORPUSCULAR HEMOGLOBIN 30.6 pg (27.0-33.4); MEAN CORPUSCULAR HGB CONC 33.5 g/dL (32.0-36.0); MEAN CORPUSCULAR VOLUME 91 fl (80-97); MONOCYTES % (AUTO) 12.6 % (3-13); RED BLOOD COUNT 3.61 10^6/uL (3.72-5.28); RED CELL DISTRIBUTION WIDTH 13.2 % (11.5-14.0); SEGMENTED NEUTROPHILS % (AUTO) 69.5 % (42-78); TOTAL CELLS COUNTED % (AUTO) 100 %; WHITE BLOOD COUNT 8.6 10^3/uL (4.0-10.5)
[2018-08-11 06:26] LABS: ANION GAP 11 (5-19); BLOOD UREA NITROGEN 12 mg/dL (7-20); CALCIUM 9.2 mg/dL (8.4-10.2); CARBON DIOXIDE 24 mmol/L (22-30); CHLORIDE 106 mmol/L (98-107); GLUCOSE 138 mg/dL (75-110); POTASSIUM 4.7 mmol/L (3.6-5.0); SODIUM 140.6 mmol/L (137-145)
[2018-08-11 06:50] LABS: PLATELET COUNT 87 10^3/uL (150-450)
--- NOTE | 2018-08-11 08:19 | PDOC PROGRESS REPORT ---
Subjective Progress Note for:: 08/11/18 Subjective:: Patient reported soreness to her lower gum. No fever or chills. Tolerating oral feeding. No chest pain or difficulty with breathing. No nausea, vomiting, or abdominal pain. Reason For Visit: TIA,PVD,HTN,CAD,HYPERLIPIDEMIA,DIABETES MELLITUS Physical Exam Vital Signs: Temp Pulse Resp BP Pulse Ox 98.8 F 99 20 139/56 H 96 08/11/18 00:06 08/11/18 02:00 08/11/18 00:06 08/11/18 00:06 08/11/18 00:06 Intake & Output 08/10/18 08/11/18 08/12/18 06:59 06:59 06:59 Intake Total 1687 587 Output Total 0 200 Balance 1687 387 Weight 79 kg 73.9 kg Physical Exam: General appearance: PRESENT: no acute distress Head exam: PRESENT: atraumatic, normocephalic Eye exam: PRESENT: conjunctiva pink, EOMI, PERRLA. ABSENT: pallor, scleral icterus Ear exam: PRESENT: normal external ear exam Mouth exam: PRESENT: moist, multiple lost teeth on lower and upper gum with expressed tenderness to palpation ABSENT: Gingivitis, gum bleeding Respiratory exam: PRESENT: clear to auscultation tevin, decreased breath sounds Cardiovascular exam: PRESENT: RRR. ABSENT: diastolic murmur, rubs, systolic murmur GI/Abdominal exam: PRESENT: normal bowel sounds, soft. ABSENT: distended, guarding, mass, organomegaly, rebound, tenderness Extremities exam: ABSENT: pedal edema Neurological exam: PRESENT: alert, awake, oriented to person, oriented to place, oriented to time, oriented to situation, CN II-XII grossly intact, other - resolved her left facial droop. ABSENT: motor sensory deficit Psychiatric exam: PRESENT: appropriate affect, normal mood. ABSENT: homicidal ideation, suicidal ideation Skin exam: PRESENT: dry, warm Results Laboratory Results: 08/11/18 05:01 08/11/18 05:01 08/11/18 08/11/18 05:01 05:01 WBC 8.6 RBC 3.61 L Hgb 11.1 L Hct 33.0 L MCV 91 MCH 30.6 MCHC 33.5 RDW 13.2 Plt Count 87 L Seg Neutrophils % 69.5 Lymphocytes % 13.5 Monocytes % 12.6 Eosinophils % 3.5 Basophils % 0.9 Absolute Neutrophils 6.0 Absolute Lymphocytes 1.2 Absolute Monocytes 1.1 Absolute Eosinophils 0.3 Absolute Basophils 0.1 Sodium 140.6 Potassium 4.7 Chloride 106 Carbon Dioxide 24 Anion Gap 11 BUN 12 Creatinine 0.79 Est GFR ( Amer) > 60 Est GFR (Non-Af Amer) > 60 Glucose 138 H Calcium 9.2 Magnesium 1.8 08/05/18 08/05/18 15:15 15:15 Creatine Kinase 74 CK-MB (CK-2) 0.98 Troponin I 0.042 Impressions: Chest CT 08/05/18 00:00 IMPRESSION: 1. SPICULATED MASS IN THE RIGHT LOWER LOBE AND SPICULATED CONFLUENT MASS IN THE RIGHT HILUM CONSISTENT WITH MALIGNANCY AND METASTATIC ADENOPATHY. SMALLER MASS IN THE SUBPLEURAL LEFT LOWER LOBE MAY REPRESENT A METASTASIS OR A 2ND MALIGNANCY. SMALL RIGHT PLEURAL EFFUSION. 2. PATCHY AIRSPACE DISEASE IN THE PERIHILAR RIGHT LUNG AND RIGHT LOWER LOBE. MAY REPRESENT INTERSTITIAL SPREAD OF TUMOR OR PNEUMONITIS. INFECTION PROBABLY LESS LIKELY BUT NOT EXCLUDED. Chest X-Ray 08/05/18 15:04 IMPRESSION: INFILTRATE IN THE RIGHT LUNG SUSPICIOUS FOR PNEUMONIA. CANNOT EXCLUDE UNDERLYING MASS IN THE RIGHT LUNG BASE. Head CT 08/05/18 15:04 IMPRESSION: CHRONIC CHANGES OF ATROPHY AND MICROVASCULAR ISCHEMIA. NO ACUTE PROCESS. EVIDENCE OF ACUTE STROKE: NO. Head MRI 08/05/18 15:41 IMPRESSION: Involutional changes of aging with chronic microvascular ischemia. No acute intracranial imaging findings. EVIDENCE OF ACUTE STROKE: NO. Carotid Doppler Study 08/06/18 08:00 IMPRESSION: BILATERAL PLAQUE. NO HEMODYNAMICALLY SIGNIFICANT STENOSIS. Abdomen/Pelvis CT 08/08/18 00:00 IMPRESSION: 1. No evidence of intra-abdominal infectious/inflammatory process or other abnormality to correlate to the patient's right-sided abdominal pain. 2. Partially imaged cystic structure in the right inguinal region. Given adjacent surgical clips, this may represent a seroma. Recommend clinical correlation. Assessment & Plan - Diagnosis (1) Facial paralysis on left side Is this a current diagnosis for this admission?: Yes (2) Pneumonia Qualifiers: Pneumonia type: due to unspecified organism Laterality: right Lung location: lower lobe of lung Qualified Code(s): J18.1 - Lobar pneumonia, unspecified organism Is this a current diagnosis for this admission?: Yes (3) HTN (hypertension) Qualifiers: Hypertension type: essential hypertension Qualified Code(s): I10 - Essential (primary) hypertension Is this a current diagnosis for this admission?: Yes (4) CAD (coronary artery disease) Qualifiers: Coronary Disease-Associated Artery/Lesion type: [place] artery [place] vs. transplanted heart: [place] heart Associated angina: angina presence unspecified Qualified Code(s): I25.10 - Atherosclerotic heart disease of [place] coronary artery without angina pectoris Is this a current diagnosis for this admission?: Yes (5) PVD (peripheral vascular disease) Is this a current diagnosis for this admission?: Yes (6) Old lacunar stroke without late effect Is this a current diagnosis for this admission?: Yes (7) Diabetes mellitus type 2 in nonobese Is this a current diagnosis for this admission?: Yes (8) HLD (hyperlipidemia) Qualifiers: Hyperlipidemia type: pure hypercholesterolemia Qualified Code(s): E78.00 - Pure hypercholesterolemia, unspecified; E78.0 - Pure hypercholesterolemia Is this a current diagnosis for this admission?: Yes (9) Vitamin D deficiency Is this a current diagnosis for this admission?: Yes (10) Vitamin B 12 deficiency Is this a current diagnosis for this admission?: Yes (12) Chronic headache disorder Qualifiers: Headache type: unspecified Intractability: not intractable Qualified Code(s): R51 - Headache Is this a current diagnosis for this admission?: Yes (13) Mass of right lung Is this a current diagnosis for this admission?: Yes - Time Time Spent with patient: 25-34 minutes Medications reviewed and adjusted accordingly: Yes Anticipated discharge: Home with Homehealth Within: Other - Inpatient Certification Based on my medical assessment, after consideration of the patient's comorbidities, presenting symptoms, or acuity I expect that the services needed warrant INPATIENT care.: Yes I certify that my determination is in accordance with my understanding of Medicare's requirements for reasonable and necessary INPATIENT services [42 CFR 412.3e].: Yes Medical Necessity: Significant Comorbidiites Make Outpatient Treatment Too Risky, Need Close Monitoring Due to Risk of Patient Decompensation, Need For IV Fluids, Need For Continuous Telemetry Monitoring, Need for IV Antibiotics, Risk of Complication if Not Cared For in Hospital, Risk of Diagnosis Which Will Require Inpatient Eval/Care/Monitoring 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 D/C potassium replacement therapy. Start on Levofloxacin 500 mg po daily. Start on Vitamin C 500 mg po daily. Continue all other current medication management. Possible discharge home tomorrow with [facility] services.
[2018-08-11] MEDS: AMLODIPINE BESYLATE 5 MG TABLET PO SCH ×2 (09:36→22:04)
[2018-08-11] MEDS: INSULIN LISPRO 100 UNIT/ML 3 ML VIAL SUBCUT SCH ×4 (09:36→22:03)
[2018-08-11] MEDS: LEVOFLOXACIN 500 MG TABLET PO SCH (09:36)
[2018-08-11] MEDS: ASPIRIN 81 MG TABLET, ENT COATED PO SCH (09:37)
[2018-08-11] MEDS: ASCORBIC ACID 500 MG TABLET PO SCH (09:37)
[2018-08-11] MEDS: FLUCONAZOLE 100 MG TABLET PO SCH (09:37)
--- NOTE | 2018-08-11 10:05 | RADIOLOGY REPORT (SQ) ---
EXAM DESCRIPTION: DANICA SWALLOW COMPLETED DATE/TIME: 08/11/2018 9:28 am REASON FOR STUDY: dysphagia pneumonia COMPARISON: None. TECHNIQUE: Videofluoroscopic swallowing examination was performed in conjunction with speech patholo gy. Videofluoroscopic imaging was obtained and reviewed and these are the findings: RADIATION DOSE: 1 minutes 26 seconds of fluoroscopy used. 1 images saved to PACS. LIMITATIONS: None FINDINGS: The patient was brought into the fluoro room and placed upright on a modified barium swall ow chair. The patient was then given multiple consistencies mixed with barium to swallow under live fluoroscopic video guidance. According to the Speech Pathologist there was no penetration or aspirat ion. IMPRESSION: NO EVIDENCE OF PENETRATION OR ASPIRATION. PLEASE SEE SPEECH PATHOLOGIST REPORT FOR OTHER FINDINGS AND RECOMMENDATIONS. COMMENT: Quality ID [id number]: Final reports for procedures using fluoroscopy that document radiation exp osure indices, or exposure time and number of fluorographic images (if radiation exposure indices are not available) TECHNICAL DOCUMENTATION: JOB ID: [id number] [employer]- All Rights Reserved Reading location - IP/workstation name: [email or web address] [id number]
--- NOTE | 2018-08-11 12:40 | ST Inp Modified Barium Swallow ---
Medical Diagnosis - Medical Diagnoses Medical Diagnosis Description & ICD-10 Code(s): facial paralysis on left side, pneumonia - ICD-10 Tx Diagnosis Coding (1) Dysphagia ICD-10 Code(s): R13.10 - DYSPHAGIA, UNSPECIFIED ST Inpatient [facility] [place] - General Date: 08/11/18 Date of Onset: 08/05/18 - admit date, onset date unclear - History History Obtained From: Other - EMR -: Medical - per EMR: patient admitted 08/05/18 with left side facial droop. Prior medical history includes hypertension, hyperlipidemia, diabetes, PVD, coronary artery disease, old minor stroke, degenerative osteoarthritis, chornic headache Medications: Medications Reviewed Allergies: Refer to medical record - Subjective Current Nutritional Means: PO Current PO Diet: Regular Current Symptoms: Pneumonia Pain: Patient reports, 5/5 - left side pain, patient states if would "spasm", 5/5 pain expressed with "spasms" - Objective Assessment: Upright, Left Lateral - Food Trials Food Trials Used: Thin liquids, Pureed, Regular The Patient: Was Able to Self Feed - Assessment Labial Function: Within Normal Limits Lingual Function: Within Normal Limits Velo-Pharyngeal Function: Unremarkable Laryngeal Function: clear voicing - Pharyngeal Stage Initiation of Pharyngeal Stage: Normal Decreased Laryngeal Elevation: No Reduced Pressure Generation: No Reduced Tongue Base Retraction: No Pre-Swallowing Pooling in Valleculae: None Pre-Swallowing Pooling in Pyriforms: None Reduced Thyro-Hyiod Approximation: No Reduced Epiglottic Excursion: No Reduced Pharyngeal Peristalsis: No Post Swallow Residuals in Valleculae: None Post Swallow Residuals in Pyriforms: None - Impression/Summary Laryngeal Penetration: No Tracheal Aspiration: no Patient Presents With: Normal swallow at eval Risk of Aspiration: Minimal - Recommendations Solid Diet Recommendations: Regular Liquid Diet Recommendations: Thin Dysphagia Therapy with FAST FOOD SALES ASSISTANT: No Recommended Techniques: Fully Upright During Meal - Time Total Time: 20 Total Timed Minutes: 20
[2018-08-11] MEDS: FERROUS SULFATE 325 MG TABLET PO SCH (12:46)
[2018-08-11] MEDS: SIMETHICONE 80 MG TAB.CHEW PO PRN (13:45)
[2018-08-11] MEDS: ATORVASTATIN CALCIUM 10 MG TABLET PO SCH (22:03)
[2018-08-11] MEDS: LOSARTAN POTASSIUM 50 MG TABLET PO SCH (22:04)
[2018-08-12] MEDS: PANTOPRAZOLE SODIUM 40 MG TABLET.DR PO SCH (05:13)
[2018-08-12] MEDS: BENZONATATE 100 MG CAPSULE PO SCH ×2 (05:13→13:50)
[2018-08-12] MEDS: SIMETHICONE 80 MG TAB.CHEW PO PRN (05:14)
[2018-08-12] MEDS: ACETAMINOPHEN 325 MG TABLET PO PRN (05:14)
[2018-08-12] MEDS: INSULIN LISPRO 100 UNIT/ML 3 ML VIAL SUBCUT SCH ×3 (08:19→17:54)
[2018-08-12] MEDS: ASPIRIN 81 MG TABLET, ENT COATED PO SCH (09:17)
[2018-08-12] MEDS: LEVOFLOXACIN 500 MG TABLET PO SCH (09:17)
[2018-08-12] MEDS: ASCORBIC ACID 500 MG TABLET PO SCH (09:17)
[2018-08-12] MEDS: FLUCONAZOLE 100 MG TABLET PO SCH (09:17)
[2018-08-12] MEDS: AMLODIPINE BESYLATE 5 MG TABLET PO SCH (09:17)
[2018-08-12] MEDS: FERROUS SULFATE 325 MG TABLET PO SCH (12:13)
--- NOTE | 2018-08-12 18:36 | PDOC DISCHARGE SUMMARY ---
General - Admit/Disc Date/PCP Admission Date/Primary Care Provider: 08/05/18 18:20 KEL CONNIE Discharge Date: 08/12/18 - Discharge Diagnosis (1) Facial paralysis on left side Is this a current diagnosis for this admission?: Yes (2) Pneumonia Is this a current diagnosis for this admission?: Yes (3) HTN (hypertension) Is this a current diagnosis for this admission?: Yes (4) CAD (coronary artery disease) Is this a current diagnosis for this admission?: Yes (5) PVD (peripheral vascular disease) Is this a current diagnosis for this admission?: Yes (6) Old lacunar stroke without late effect Is this a current diagnosis for this admission?: Yes (7) Diabetes mellitus type 2 in nonobese Is this a current diagnosis for this admission?: Yes (8) HLD (hyperlipidemia) Is this a current diagnosis for this admission?: Yes (9) Vitamin D deficiency Is this a current diagnosis for this admission?: Yes (10) Vitamin B 12 deficiency Is this a current diagnosis for this admission?: Yes (12) Chronic headache disorder Is this a current diagnosis for this admission?: Yes (13) Mass of right lung Is this a current diagnosis for this admission?: Yes - Additional Information Prescriptions: Aspirin [Ecotrin 81 mg EC Tablet] 81 mg PO DAILY #30 tabec Aspirin/Dipyridamole [Aggrenox 25 mg/200 mg Capsule SA] 1 cap.sr PO Q12 #60 cpmp.12hr Docusate Sodium [Colace 100 mg Capsule] 100 mg PO BIDP PRN #60 capsule PRN Reason: Fluconazole [Diflucan 100 mg Tablet] 100 mg PO DAILY #7 tablet Levofloxacin [Levaquin 500 mg Tablet] 500 mg PO DAILY #7 tablet Simethicone 125 mg PO PCHS PRN 30 Days #120 tab.chew PRN Reason: For excess gas Home Medications: Amlodipine Besylate [Norvasc 5 mg Tablet] 5 mg PO DAILY 08/05/18 Ascorbate Calcium [Vitamin C] 500 mg PO DAILY 08/05/18 Benzonatate [Tessalon Perles 100 mg Capsule] 200 mg PO Q8HP PRN 08/05/18 Ferrous Sulfate [Feosol 325 mg Tablet] 325 mg PO DAILY 08/05/18 Irbesartan [Avapro] 300 mg PO DAILY 08/05/18 Metformin HCl 500 mg PO BID 08/05/18 Pravastatin Sodium [Pravachol] 40 mg PO DAILY 08/05/18 Aspirin [Ecotrin 81 mg EC Tablet] 81 mg PO DAILY #30 tabec 08/12/18 Aspirin/Dipyridamole [Aggrenox 25 mg/200 mg Capsule SA] 1 cap.sr PO Q12 #60 cpmp.12hr 08/12/18 Docusate Sodium [Colace 100 mg Capsule] 100 mg PO BIDP PRN #60 capsule 08/12/18 Fluconazole [Diflucan 100 mg Tablet] 100 mg PO DAILY #7 tablet 08/12/18 Levofloxacin [Levaquin 500 mg Tablet] 500 mg PO DAILY #7 tablet 08/12/18 Simethicone 125 mg PO PCHS PRN 30 Days #120 tab.chew 08/12/18 History of Present Illness Patient complains of: Left facial droop and speech problem History of Present Illness: SHEEBA JOHANSEN is a 78 year old female patient known to my practice who presented to the ED with new onset left facial droop of approximately 31/2 hours duration. Patient reported that she was not able to chew or feel food in her mouth while she was eating. Upon arrival of her she admitted to incomprehensible speech and this prompted her coming to the ED for further evaluation. She claimed that she was able and remain so with moving all her extremities. she denied any chest pain, palpitation, headache or dizziness. No nausea or vomiting. She denied any alcohol or illicit drug usage. She reported compliance with her medications. She denied any prior similar episode. Upon arrival in the ED there was concern about stroke in evolution but patient refused such treatment. Her subsequent imaging assessment revealed no acute pathologic process on CT and MRI of brain. In view of progressive improvement in her speech there was concern for possible TIA. She was advised admission for further evaluation and management. Her morbidities include Hypertension, Hyperlipidemia, Diabetes Mellitus Type 2, Vitamin B12 and Vitamin D deficiencies, Peripheral vascular disease, Coronary Artery disease, old minor stroke in 2004, Degenerative Osteoarthritis with chronic joint pain, and chronic headache. Hospital Course Hospital Course: Patient was admitted as case of TIA with left facial droop despite her negative CT and MRI head scan evaluation. Her chest X ray was significant for right lung lesions suggestive of possible malignancy. Due to concern for bronchoscopy and biopsy she was not treated with anti platelet therapy beyond low dose Aspirin. She was seen in consultation by Dr. Molina, differential specialist, with recommendation for outpatient bronchoscopy after adequate treatment for possible pneumonia. She had IV Levofloxacin therapy and oral Diflucan due to sputum culture growth of Sarah species. Her vascular evaluation for TIA revealed bilateral plaque and echocardiogram was devoid of pathology to suggest intramural source of thrombosis. Her facial droop did resolved during this hospitalization. Her speech evaluation was within normal. Her lipid panel was within normal limit. In view of her diabetes mellitus and incident of TIA in light of her prior history, I will start patient on Aggrenox 1 tablet po bid. She will remain on Pravastatin 40 mg po daily. She will be discharge home today and follow up in the office with Dr. Molina and myself as instructed upon discharge. Physical Exam Vital Signs: Temp Pulse Resp BP Pulse Ox 99.5 F 95 16 140/52 H 95 08/12/18 16:27 08/12/18 16:27 08/12/18 16:27 08/12/18 16:27 08/12/18 16:27 Intake & Output 08/11/18 08/12/18 08/13/18 06:59 06:59 06:59 Intake Total 587 1204 100 Output Total 200 Balance 387 1204 100 Weight 73.9 kg 74.5 kg Physical Exam: General appearance: PRESENT: no acute distress Head exam: PRESENT: atraumatic, normocephalic Eye exam: PRESENT: conjunctiva pink, EOMI, PERRLA. ABSENT: pallor, scleral icterus Ear exam: PRESENT: normal external ear exam Mouth exam: PRESENT: moist, multiple lost teeth on lower and upper gum with expressed tenderness to palpation ABSENT: Gingivitis, gum bleeding Respiratory exam: PRESENT: clear to auscultation tevin, decreased breath sounds Cardiovascular exam: PRESENT: RRR. ABSENT: diastolic murmur, rubs, systolic murmur GI/Abdominal exam: PRESENT: normal bowel sounds, soft. ABSENT: distended, gua rding, mass, organomegaly, rebound, tenderness Extremities exam: ABSENT: pedal edema Neurological exam: PRESENT: alert, awake, oriented to person, oriented to place, oriented to time, oriented to situation, CN II-XII grossly intact, other - resolved her left facial droop. ABSENT: motor sensory deficit Psychiatric exam: PRESENT: appropriate affect, normal mood. ABSENT: homicidal ideation, suicidal ideation Skin exam: PRESENT: dry, warm Results Laboratory Results: 08/11/18 05:01 08/11/18 05:01 08/05/18 08/05/18 15:15 15:15 Creatine Kinase 74 CK-MB (CK-2) 0.98 Troponin I 0.042 Impressions: Chest CT 08/05/18 00:00 IMPRESSION: 1. SPICULATED MASS IN THE RIGHT LOWER LOBE AND SPICULATED CONFLUENT MASS IN THE RIGHT HILUM CONSISTENT WITH MALIGNANCY AND METASTATIC ADENOPATHY. SMALLER MASS IN THE SUBPLEURAL LEFT LOWER LOBE MAY REPRESENT A METASTASIS OR A 2ND MALIGNANCY. SMALL RIGHT PLEURAL EFFUSION. 2. PATCHY AIRSPACE DISEASE IN THE PERIHILAR RIGHT LUNG AND RIGHT LOWER LOBE. MAY REPRESENT INTERSTITIAL SPREAD OF TUMOR OR PNEUMONITIS. INFECTION PROBABLY LESS LIKELY BUT NOT EXCLUDED. Chest X-Ray 08/05/18 15:04 IMPRESSION: INFILTRATE IN THE RIGHT LUNG SUSPICIOUS FOR PNEUMONIA. CANNOT EXCLUDE UNDERLYING MASS IN THE RIGHT LUNG BASE. Head CT 08/05/18 15:04 IMPRESSION: CHRONIC CHANGES OF ATROPHY AND MICROVASCULAR ISCHEMIA. NO ACUTE PROCESS. EVIDENCE OF ACUTE STROKE: NO. Head MRI 08/05/18 15:41 IMPRESSION: Involutional changes of aging with chronic microvascular ischemia. No acute intracranial imaging findings. EVIDENCE OF ACUTE STROKE: NO. Carotid Doppler Study 08/06/18 08:00 IMPRESSION: BILATERAL PLAQUE. NO HEMODYNAMICALLY SIGNIFICANT STENOSIS. Abdomen/Pelvis CT 08/08/18 00:00 IMPRESSION: 1. No evidence of intra-abdominal infectious/inflammatory process or other abnormality to correlate to the patient's right-sided abdominal pain. 2. Partially imaged cystic structure in the right inguinal region. Given adjacent surgical clips, this may represent a seroma. Recommend clinical correlation. Modified Barium Swallow 08/11/18 00:00 IMPRESSION: NO EVIDENCE OF PENETRATION OR ASPIRATION. PLEASE SEE SPEECH PATHOLOGIST REPORT FOR OTHER FINDINGS AND RECOMMENDATIONS. Qualifiers - * PATIENT BEING DISCHARGED WITH ANY OF THE FOLLOWING DIAGNOSIS: Stroke Stroke Pt being discharged on Anti-thrombolytic therapy?: Yes Stroke Pt being discharged on Anti-coagulation therapy?: No Reason(s) for not prescribing Anti-coagulation therapy:: Not indicated Stroke Pt being discharged on Statins?: Yes Plan Discharge Plan: D/C home today. Follow up in the office with Dr. Molina and myself as instructed upon discharge. Time Spent: Greater than 30 Minutes - I had extensive discussion with patient regarding post discharge care plan and need for follow up with [employer] regarding need for bronchoscopy. Her [id number] and grand daughter were in attendance.
[2018-08-12 19:02] VITALS: BP 157/54
== END 2018-08-12 19:10 | disposition home or self-care (01) | DRG 69 ==
LOC: ER 14:56 → EH 18:20 → 3W 20:14
PROVIDERS: ADMIT Internal Medicine Geriatric Medicine; ATTEND Internal Medicine Geriatric Medicine
PROC: 3E0F73Z Introduction of Anti-inflammatory into Respiratory Tract, Via Natural or Artificial Opening (ICD-10-PCS; principal; 2018-08-08)
DX: G45.9 Transient cerebral ischemic attack, unspecified (principal); J18.1 Lobar pneumonia, unspecified organism; E11.51 Type 2 diabetes mellitus with diabetic peripheral angiopathy without gangrene; I10 Essential (primary) hypertension; I25.10 Atherosclerotic heart disease of native coronary artery without angina pectoris; I69.392 Facial weakness following cerebral infarction; E55.9 Vitamin D deficiency, unspecified; E53.8 Deficiency of other specified B group vitamins; R51 Headache; R91.8 Other nonspecific abnormal finding of lung field; M19.90 Unspecified osteoarthritis, unspecified site; Z53.29 Procedure and treatment not carried out because of patient's decision for other reasons; E78.00 Pure hypercholesterolemia, unspecified; Z79.899 Other long term (current) drug therapy; Z79.84 Long term (current) use of oral hypoglycemic drugs; Z99.81 Dependence on supplemental oxygen; Z87.891 Personal history of nicotine dependence; Z88.1 Allergy status to other antibiotic agents; Z88.0 Allergy status to penicillin; Z98.84 Bariatric surgery status; Z83.3 Family history of diabetes mellitus; Z80.9 Family history of malignant neoplasm, unspecified; Z82.49 Family history of ischemic heart disease and other diseases of the circulatory system
CPT/HCPCS: 36415; 70450; 70551; 71045; 71260; 74177; 74230; 80048; 80053; 80061; 81001; 82550; 82553; 82962; 83036; 83735; 84484; 85025; 85610; 85730; 87070; 87205; 93005; 93010; 93306; 93880; 94667; 94668; 99285; J1815; J1956; J3490; J7030; J7620

== ENCOUNTER 2018-08-20 12:30 | Emergency (ER) | payer MEDICARE ==
--- NOTE | 2018-08-20 12:49 | RADIOLOGY REPORT (SQ) ---
EXAM DESCRIPTION: CT HEAD WITHOUT COMPLETED DATE/TIME: 08/20/2018 12:39 pm REASON FOR STUDY: bed 11 stroke alert COMPARISON: CT brain 08/05/2018, 07/18/2012 MRI brain 08/05/2018 TECHNIQUE: Axial images acquired through the brain without intravenous contrast. Images reviewed wi th bone, brain and subdural windows. Additional sagittal and coronal reconstructions were generated. Images stored on PACS. All CT scanners at this facility use dose modulation, iterative reconstruction, and/or weight based d osing when appropriate to reduce radiation dose to as low as reasonably achievable (ALARA). [facility]: Dose Right [facility]: CareDose [facility]: Dose Right [facility]: Teradose 4D [facility]: [employer] RADIATION DOSE: CT Rad equipment meets quality standard of care and radiation dose reduction techniq ues were employed. CTDIvol: 53.2 mGy. DLP: 1097 mGy-cm. mGy. LIMITATIONS: None. FINDINGS: VENTRICLES: Normal size and contour. CEREBRUM: Early subacute infarct in the left posterior cerebral artery distribution, nonhemorrhagic. This involves the left posterior temporal, occipital, and parietal cortex and subcortical white donald er best shown on axial images 17-24. No superimposed acute hemorrhage. This is subacute, likely old er than 24 hours. Findings discussed with Dr. Harris, 1240 hours, 08/20/2018 No acute intracranial hemorrhage. No mass effect or midline shift. Multiple old lacunar infarcts in the bifrontal and biparietal deep periventricular white matter. CEREBELLUM: Old lacunar infarcts in the bilateral cerebellar hemispheres. No definite CT evidence of acute ischemic change in the posterior fossa. No mass effect or midline shift. EXTRAAXIAL SPACES: No fluid collections. No masses. ORBITS AND GLOBE: No intra- or extraconal masses. Normal contour of globe without masses. CALVARIUM: No fracture. PARANASAL SINUSES: No fluid or mucosal thickening. SOFT TISSUES: No mass or hematoma. OTHER: No other significant finding. IMPRESSION: Subacute nonhemorrhagic infarct left posterior cerebral artery distribution EVIDENCE OF ACUTE STROKE: Yes, subacute nonhemorrhagic infarct left posterior cerebral artery distrib ution COMMENT: Pertinent findings on the imaging study reported as a CRITICAL RESULT to ER PROVIDER at12 40 hours 08/20/2018 Category of Critical Result: CT code stroke Quality ID # [id number]: Final reports with documentation of one or more dose reduction techniques (e.g., Au tomated exposure control, adjustment of the mA and/or kV according to patient size, use of iterative reconstruction technique) TECHNICAL DOCUMENTATION: JOB ID: [id number] [employer]- All Rights Reserved Reading location - IP/workstation name: [email or web address]
[2018-08-20] MEDS ORDERED: ALTEPLASE INJ 100 MG VIAL ONE (13:09)
--- NOTE | 2018-08-20 13:11 | ER Document Report ---
ED NIH Stroke Scale - NIH Stroke Scale *: 1. NIH scale should be completed with appropriate accompanying assessment tools. *: 2. The NIH should reflect what the patient is capable of doing and should not be coached by the clinician. 1a. Level of Consciousness: 0=Alert;keenly responsive -: 1=Drowsy -: 2=Obtunded -: 3=Coma/unresponsive or reflex to noxious stimuli. 1a. Responses: 1 1b. Orientation Questions: a. What month is it? -: b. How old are you? -: 0=Answers both questions correctly. -: 1=Answers one question correctly or patient is intubated or has orotracheal trauma. -: 2=Answers neither question correctly. 1b. Responses: 1 1c. Response to commands: a. Open and close eyes? -: b. Ski Instructor and release hand? -: Credit is given despite weakness. Demonstration of task is permitted. Substitute command if hands cannot be used. -: 0=Performs both tasks correctly -: 1=Performs one task correctly -: 2=Performs neither task correctly 1c. Responses: 0 2. Gaze: Establish eye contact and instruct patient to "Follow my finger" -: 0=Normal -: 1=Partial gaze palsy. Gaze is abnormal in one or both eyes, but where forced deviation or total gaze paresis is not present. -: 2=Forced deviation or total gaze paresis. 2. Responses: 0 3. Visual Joyner: Sees fingers in all four quadrants. -: 0=No visual loss. -: 1=Partial hemianopsia. -: 2=Complete hemianopsia. -: 3=Bilateral hemianopsia (including Cortical blindness) 3. Responses: 3 4. Facial Movement: Instruct patient to: -: a. Show me your teeth -: b. Raise your eyebrows -: c. Close your eyes -: d. Smile -: 0=Normal symmetrical movement -: 1=Minor paralysis (flattened nasolabial fold, asymmetry on smiling). -: 2=Partial paralysis (total or near total paralysis of lower face). -: 3=Complete paralysis of upper and lower face 4. Responses: 2 5. Motor functions (left arm): Alternate sides and extend each arm with palms down (90 degrees if sitting or 45 degrees for supine). -: 0=No drift;limb holds for full 10 seconds. -: 1=Drift; limb holds but drifts down before full 10 seconds, but does not hit bed. -: 2=Some effort against gravity; limb cannot get to or maintain position. -: 3=No effort against gravity; limb falls. -: 4=No movement. -: UN=Amputation, joint fusion, explain in comments. 5. Responses (left arm): 0 5. Motor Functions (right arm): Alternate sides and extend each arm with palms down (90 degrees if sitting or 45 degrees for supine). -: 0=No drift;limb holds for full 10 seconds. -: 1=Drift; limb holds but drifts down before full 10 seconds, but does not hit bed. -: 2=Some effort against gravity; limb cannot get to or maintain position. -: 3=No effort against gravity; limb falls. -: 4=No movement. -: UN=Amputation, joint fusion, explain in comments. 5. Responses (right arm): 0 6. Motor Functions (left leg): With patient lying supine, alternate sides and extend each leg (30 degrees always while supine). -: 0=No drift, leg holds position for full 5 seconds -: 1=Drift; leg falls before full 5 seconds but does not hit bed. -: 2=Some effort against gravity, leg falls to bed but some effort against gravity. -: 3=No effort against gravity, leg falls to bed immediately. -: 4=No movement. -: UN=Amputation, joint fusion; explain in comments. 6. Responses (left leg): 2 6. Motor Functions (right leg): With patient lying supine, alternate sides and extend each leg (30 degrees always while supine). -: 0=No drift, leg holds position for full 5 seconds -: 1=Drift; leg falls before full 5 seconds but does not hit bed. -: 2=Some effort against gravity, leg falls to bed but some effort against gravity. -: 3=No effort against gravity, leg falls to bed immediately. -: 4=No movement. -: UN=Amputation, joint fusion; explain in comments. 6. Responses (right leg): 2 7. Limb Ataxia: With eyes open instruct patient to: -: a. "Touch your finger to your nose". -: b. "Touch your heel to your slater" -: 0=Absent -: 1=Present in one limb. -: 2=Present in two limbs. -: UN=Amputation or joint fusion; explain in comments. 7. Responses: 0 8. Sensory: Test sensation using pinprick or noxious stimuli. Test as many body parts as possible. -: 0=Normal;no sensory loss -: 1=Mile to moderate sensory loss (patient feels pin prick but is less sharp on affected side). -: 2=Severe or total sensory loss. 8. Responses: 0 9. Best Language: Instruct patient to: -: a. "Describe what you see in this picture." -: b. "Name the items in this picture." -: c. "Read these sentences." -: 0=No aphasia, normal -: 1=Mild to moderate aphasia. -: 2=Severe aphasia -: 3=Mute, global aphasia, no usable speech or auditory comprehension. 9. Responses: 0 10. Articulation, Dysarthia: Instruct patient to: -: "Read these words" or "Repeat these words" -: 0=Normal -: 1=Mild to moderate; patient may slur some words but can be understood without difficulty. -: 2=Severe; patients speech so slurred as to be unintelligible in the absence of dysphasia. -: UN=Intubated or other physical barrier, explain in comments. 10. Responses: 1 11. Extinction or inattention: 0=No abnormality -: 1= Visual, tactile, auditory, spatial, or personal inattention or extinction to bilateral simulation in one or the sensory modalities. -: 2=Profound abram-inattention or abram-inattention to more than one modality; does not recognize own hand. 11. Responses: 0 Total Score: 12
[2018-08-20] MEDS ORDERED: NICARDIPINE HCL RTU, ISO-OS 20 MG/200 ML RTUINJ IV PRN (13:12)
[2018-08-20] MEDS ORDERED: NORMAL SALINE 1000 ML 1,000 ML IV ONE (13:16)
[2018-08-20] MEDS ORDERED: ASPIRIN 325 MG TABLET PO ONE (13:17)
--- NOTE | 2018-08-20 13:21 | RADIOLOGY REPORT (SQ) ---
EXAM DESCRIPTION: CHEST SINGLE VIEW COMPLETED DATE/TIME: 08/20/2018 1:11 pm REASON FOR STUDY: bed 11 stroke alert COMPARISON: CT chest 08/06/2018 Chest films 08/05/2018, 08/25/2009 EXAM PARAMETERS: NUMBER OF VIEWS: One view. TECHNIQUE: Single frontal radiographic view of the chest acquired. RADIATION DOSE: NA LIMITATIONS: None. FINDINGS: LUNGS AND PLEURA: Right lower lobe 5 cm mass. 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 These findings are similar compared to CT 08/06/2018. No gross r ight pleural effusion. Left lung well inflated and grossly clear. MEDIASTINUM AND HILAR STRUCTURES: Massive right hilar enlargement from adenopathy/tumor HEART AND VASCULAR STRUCTURES: No cardiomegaly. Old sternotomy for CABG BONES: No acute findings. HARDWARE: None in the chest. OTHER: No other significant finding. IMPRESSION: Massive right hilar enlargement from adenopathy/ tumor with 5 cm mass in the right lower lobe. 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 These findings are similar compared to CT exam 08/06/2018. TECHNICAL DOCUMENTATION: JOB ID: [id number] [employer]- All Rights Reserved Reading location - IP/workstation name: [email or web address]
[2018-08-20 13:26] LABS: INTERNATIONAL RATION (INR) 1.19
--- NOTE | 2018-08-20 13:26 | ER Document Report ---
ED Neuro Symptoms/Deficit - General Chief Complaint: S/S of Possible Stroke Stated Complaint: WEAKNESS Time Seen by Provider: 08/20/18 12:56 Primary Care Provider: KEL ROSALSE MD [Primary Care Provider] - Follow up as needed TRAVEL OUTSIDE OF THE [place] IN LAST 30 DAYS: No - HPI Notes: Patient is a 78-year-old female that presents to the emergency department for chief complaint of strokelike symptoms. Patient's states that yesterday she started having intermittent periods where she seemed more fatigued and then would perk up. Today around 11 or 1130 patient had gone to the bathroom and was unable to get back to bed. He states he helped her ambulate but she was having a hard time and seemed to be leaning to her left. She was recently seen for left facial droop and diagnosed with TIA. They deny any recent head injury. Patient denies any current pain but HPI is limited because of her presenting condition. Past Medical History: Hypertension, hyperlipidemia, diabetes, CAD Past Surgical History: Reviewed in chart Social History: No tobacco or alcohol use Family History: Reviewed and noncontributory for presenting illness Allergies: Reviewed, see documented allergy list. REVIEW OF SYSTEMS: Unable to obtain because of acuity of condition PHYSICAL EXAMINATION: Vital signs reviewed, nursing noted reviewed. GENERAL: Somnolent, well-nourished and in no acute distress. HEAD: Atraumatic, normocephalic. EYES: Complete weakness blind, eyes appear normal, extraocular movements intact, sclera anicteric, conjunctiva are normal. ENT: nares patent, oropharynx clear without exudates. Dry mucous membranes. NECK: Normal range of motion, supple without lymphadenopathy LUNGS: Breath sounds clear to auscultation bilaterally and equal. No wheezes rales or rhonchi. HEART: Regular rate and rhythm without murmurs ABDOMEN: Soft, nontender, normoactive bowel sounds. No rebound, guarding, or rigidity. No masses appreciated. EXTREMITIES: Nontender, good range of motion, no pitting or edema. NEUROLOGICAL: NIH is 12. Bilateral lower extremity weakness, left leg numbness, left arm numbness, left facial droop, blind, drowsy, confused PSYCH: Flat affect SKIN: Warm, Dry, normal turgor, no rashes or lesions noted on exposed skin - Related Data Allergies/Adverse Reactions: ampicillin [Ampicillin] Allergy (Verified 08/20/18 12:53) RED BLOTCHES Penicillins Allergy (Verified 08/20/18 12:53) RED BLOTCHES Past Medical History - Social History Smoking Status: Never Smoker Family History: DM, Hypertension, Malignancy - Past Medical History Cardiac Medical History: Reports: Hx Coronary Artery Disease, Hx Hypercholesterolemia, Hx Hypertension - medication, Hx Peripheral Vascular Disease Denies: Hx Heart Attack Pulmonary Medical History: Denies: Hx Asthma Neurological Medical History: Reports: Hx Cerebrovascular Accident. Denies: Hx Seizures Endocrine Medical History: Reports: Hx Diabetes Mellitus Type 2 Renal/ Medical History: Denies: Hx Peritoneal Dialysis GI Medical History: Denies: Hx Hepatitis, Hx Hiatal Hernia, Hx Ulcer Musculoskeletal Medical History: Reports Hx Arthritis Psychiatric Medical History: Denies: Hx Depression Infectious Medical History: Denies: Hx Hepatitis Past Surgical History: Reports: Hx Bowel Surgery - gastric bypass, Hx Open Heart Surgery - CABG. Denies: Hx Mastectomy, Hx Pacemaker - Immunizations Hx Diphtheria, Pertussis, Tetanus Vaccination: No Physical Exam - Vital signs Vitals: Resp Pulse Ox 13 95 08/20/18 12:45 08/20/18 12:45 Course - Re-evaluation Re-evalutation: 08/20/18 13:37 Vitals reviewed. Nursing notes reviewed. Patient was significantly hypertensive at presentation and was ordered a Cardene infusion. Her CT scan shows subacute infarct and with her sputtering symptoms yesterday the stroke likely started more than 4.5 hours ago. She does have a recent diagnosis of TIA. Patients care and NIH was discussed with Dr. Shukla, neurology, at [facility]. Because of her recent stroke symptoms and significant hypertension he does not advise thrombolytics. Patient was ordered rectal aspirin and Cardene for her hypertension. Her blood pressure improved to 166/79 prior to Cardene infusion. CTA had initially been ordered however Dr. Shukla states that they will obtain that when she presents to the emergency room and does not wish to delay transfer for CTA. I did discuss patient's care with her who is in agreement with this plan. Patient is stable for transfer Chest X-Ray 08/20/18 12:31 IMPRESSION: Massive right hilar enlargement from adenopathy/ tumor with 5 cm mass in the right lower lobe. 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 These findings are similar compared to CT exam 08/06/2018. Head CT 08/20/18 12:31 IMPRESSION: Subacute nonhemorrhagic infarct left posterior cerebral artery distribution EVIDENCE OF ACUTE STROKE: Yes, subacute nonhemorrhagic infarct left posterior cerebral artery distribution Laboratory 08/20/18 08/20/18 12:53 13:03 PT 15.7 H INR 1.19 APTT 37.7 H POC Glucose 170 H - Vital Signs Vital signs: Temp Pulse Resp BP Pulse Ox 21 H 201/105 H 96 08/20/18 13:11 08/20/18 13:11 08/20/18 13:11 - Laboratory Result Diagrams: 08/20/18 13:03 08/20/18 13:03 Laboratory results interpreted by me: 08/20/18 12:53 POC Glucose 170 H - EKG Interpretation by Me Additional EKG results interpreted by me: 08/20/18 13:24 Interpreted by myself 1300: Sinus tachycardia, rate 106, normal axis, no ectopy, no STEMI Critical Care Note - Critical Care Note Total time excluding time spent on procedures (mins): 35 Comments: Critical care time 40 exclusive from separate billable procedures for a patient requiring complex medical decision making, and high potential for clinical deterioration. Time spent obtaining history from patient or surrogate, discussions with consultants, development of treatment plan with patient or surrogate, evaluation of patient's response to treatment, examination of patient, ordering and performing treatments and interventions, ordering and re view of laboratory studies, re-evaluation of patient's condition, ordering and review of radiographic studies and review of old charts Discharge - Discharge Clinical Impression: Acute ischemic stroke, Blindness, Left leg numbness, Weakness on left side of face Lower extremity weakness Qualifiers: Laterality: bilateral Qualified Code(s): R29.898 - Other symptoms and signs involving the musculoskeletal system Condition: Stable Disposition: [facility]
[2018-08-20 13:27] LABS: PARTIAL THROMBOPLASTIN TIME 37.7 SEC (23.5-35.8)
[2018-08-20 13:29] LABS: PROTHROMBIN TIME 15.7 SEC (11.4-15.4)
[2018-08-20 13:33] LABS: ABSOLUTE BASOPHILS # (AUTO) 0.1 10^3/uL (0.0-0.2); ABSOLUTE EOSINOPHILS # (AUTO) 0.2 10^3/uL (0.0-0.6); ABSOLUTE LYMPHOCYTES (AUTO) 1.3 10^3/uL (0.5-4.7); ABSOLUTE MONOCYTES (AUTO) 1.1 10^3/uL (0.1-1.4); ABSOLUTE NEUT (AUTO) 7.2 10^3/uL (1.7-8.2); EOSINOPHILS % (AUTO) 2.4 % (0-6); HEMATOCRIT 35.8 % (36.0-47.0); LYMPHOCYTES % (AUTO) 12.7 % (13-45); MEAN CORPUSCULAR HEMOGLOBIN 30.3 pg (27.0-33.4); MEAN CORPUSCULAR HGB CONC 33.5 g/dL (32.0-36.0); MEAN CORPUSCULAR VOLUME 90 fl (80-97); MONOCYTES % (AUTO) 11.2 % (3-13); RED BLOOD COUNT 3.96 10^6/uL (3.72-5.28); RED CELL DISTRIBUTION WIDTH 13.3 % (11.5-14.0); SEGMENTED NEUTROPHILS % (AUTO) 72.7 % (42-78); TOTAL CELLS COUNTED % (AUTO) 100 %; WHITE BLOOD COUNT 9.9 10^3/uL (4.0-10.5)
[2018-08-20] MEDS ORDERED: ASPIRIN 300 MG SUPP, RECTAL PR ONE (13:35)
[2018-08-20 13:42] LABS: ALANINE AMINOTRANSFERASE 20 U/L (9-52); ALBUMIN 3.9 g/dL (3.5-5.0); ALKALINE PHOSPHATASE 108 U/L (38-126); ANION GAP 9 (5-19); ASPARTATE AMINO TRANSFERASE 60 U/L (14-36); BILIRUBIN,DIRECT 0.3 mg/dL (0.0-0.4); BILIRUBIN,TOTAL 0.7 mg/dL (0.2-1.3); BLOOD UREA NITROGEN 7 mg/dL (7-20); CALCIUM 9.4 mg/dL (8.4-10.2); CARBON DIOXIDE 31 mmol/L (22-30); CHLORIDE 100 mmol/L (98-107); CREATINE KINASE 71 U/L (30-135); GLUCOSE 191 mg/dL (75-110); SODIUM 139.9 mmol/L (137-145); TOTAL PROTEIN 7.7 g/dL (6.3-8.2)
[2018-08-20 13:47] VITALS: BP 168/79
[2018-08-20 13:52] LABS: CREATINE KINASE MB 0.7 ng/mL (<4.55); TROPONIN I 0.03 ng/mL
[2018-08-20 13:53] LABS: PLATELET COUNT 85 10^3/uL (150-450)
--- NOTE | 2018-08-20 14:47 | EKG REPORT ---
SEVERITY:- BORDERLINE ECG - SINUS TACHYCARDIA BORDERLINE T WAVE ABNORMALITIES : Confirmed by: Jessica Escalera MD 20-Aug-2018 14:46:34
== END 2018-08-20 13:46 | disposition short-term general hospital (02) ==
LOC: ER 12:30
DX: I63.9 Cerebral infarction, unspecified (principal); R20.0 Anesthesia of skin; R29.810 Facial weakness; R53.1 Weakness; R53.83 Other fatigue; I10 Essential (primary) hypertension; E11.9 Type 2 diabetes mellitus without complications; I25.10 Atherosclerotic heart disease of native coronary artery without angina pectoris
CPT/HCPCS: 36415; 70450; 71045; 80053; 82550; 82553; 82962; 84484; 85025; 85610; 85730; 93005; 93010; 99291